=== PATIENT | male | born 1970 | race African-American/Black ===

== ENCOUNTER 2018-12-04 00:40 | Inpatient (IN) | payer OTHER ==
[~2018-12-04] VITALS: Ht 185.4 cm; Wt 136.5 kg
[2018-12-04] VITALS (19 sets, daily range): BP systolic 97–173; BP diastolic 56–108
[2018-12-04] MEDS ORDERED: morphine INJ 4 MG/ML 1 ML (VIAL/SYRINGE) ONE (01:43)
[2018-12-04] MEDS: morphine INJ 4 MG/ML 1 ML (VIAL/SYRINGE) IVP PRN ×2 (01:56→05:25)
[2018-12-04 03:53] LABS: BASOPHILS % (AUTO) 0 % (0-10); EOSINOPHILS # (AUTO) 0.1 10^3/uL (0.0-0.3); EOSINOPHILS % (AUTO) 1 % (0-10); HEMATOCRIT 50 % (40-54); HEMOGLOBIN 16.6 G/DL (13.3-17.7); LYMPHOCYTES # (AUTO) 2.3 X 10^3 (1.0-4.0); LYMPHOCYTES % (AUTO) 24 % (12-44); MEAN CORPUSCULAR HEMOGLOBIN 27 PG (25-34); MEAN CORPUSCULAR HGB CONC 33 G/DL (32-36); MEAN CORPUSCULAR VOLUME 83 FL (80-99); MONOCYTES # (AUTO) 0.9 X 10^3 (0.0-1.0); MONOCYTES % (AUTO) 10 % (0-12); NEUTROPHILS % (AUTO) 65 % (42-75); PLATELET COUNT 102 10^3/uL (130-400); RED BLOOD COUNT 6.07 10^6/uL (4.35-5.85); RED CELL DISTRIBUTION WIDTH 14.1 % (10.0-14.5); WHITE BLOOD COUNT 9.2 10^3/uL (4.3-11.0)
[2018-12-04 04:14] LABS: BUN/CREATININE RATIO 12; CALCIUM 9.1 MG/DL (8.5-10.1); CARBON DIOXIDE 22 MMOL/L (21-32); CHLORIDE 101 MMOL/L (98-107); CREATININE SERUM 0.95 MG/DL (0.60-1.30); GFR ESTIMATED > 60; GLUCOSE 264 MG/DL (70-105); MAGNESIUM 1.8 MG/DL (1.8-2.4); PHOSPHORUS 2.7 MG/DL (2.3-4.7); POTASSIUM 4.4 MMOL/L (3.6-5.0); SODIUM 136 MMOL/L (135-145)
[2018-12-04] MEDS ORDERED: KCL 20 MEQ TAB (K-DUR) PO SCH (06:00)
[2018-12-04] MEDS ORDERED: POTASSIUM CL 10MEQ/50ML IVPB 50 ML IV SCH (06:00)
[2018-12-04] MEDS ORDERED: MAGNESIUM 1 GM/100 ML IVPB 100 ML IV SCH (06:00)
[2018-12-04] MEDS: inSUlin ASPART (NovoLOG) 1 UNIT/0.01 ML (CHARGE PER UNIT) SC SCH ×4 (06:02→21:22)
--- NOTE | 2018-12-04 06:11 | Pulmonary Consultation ---
History of Present Illness History of Present Illness Date of Consultation 12/04/18 06:06 Time Seen by Provider: 06:07 Date of Admission History of Present Illness 48yo directly admitted from [facility] after dx of bilateral PEs. Pt was recently traveled to [place] via bus 2 wks ago. No hx of PE. Pt is not hypotensive. Allergies and Home Medications Allergies Coded Allergies: No Known Drug Allergies (Unverified , 12/04/18) Past Zfindwg-Qgetxe-Kxbdjm Hx Patient Social History Alcohol Use: Regular Use Alcohol Beverage of Choice: Beer Recreational Drug Use: No Smoking Status: Current Everyday Smoker Type Used: Cigarettes Recent Foreign Travel: No Contact w/Someone Who Travel: No Recent Infectious Disease Expo: No Review of Systems Time Seen by Provider: 06:32 Constitutional: Weakness, Malaise Eyes: No: Pain, Vision change, Conjunctivae inflammation, Eyelid inflammation, Other, Redness ENT: No: Ear pain, Ear discharge, Nose pain, Nose discharge, Nose congestion, Mouth pain, Mouth swelling, Throat pain, Throat swelling, Other Respiratory: Cough, Dry, Shortness of breath, SOB with excertion, Pleuritic Pain; No: Wheezing, Hemoptysis Cardiovascular: Chest Pain, Palpitations, Paroxysmal Noc. Dyspnea, Edema Gastrointestinal: No: Nausea, Vomiting, Abdominal Pain, Diarrhea, Constipation , Melena, Hematochezia, Other Genitourinary: No Dysuria, No Frequency, No Incontinence, No Hematuria, No Retention, No Other Sepsis Event Evaluation Height, Weight, BMI Height: 6'1.00" Weight: 297lbs. 6.0oz. 134.907924tb; 39.2 BMI Method: Exam Exam Vital Signs Date Time Temp Pulse Resp B/P (MAP) Pulse Ox O2 Delivery O2 Flow Rate FiO2 12/04/18 06:00 122 30 125/82 (96) 96 Nasal Cannula 2.00 12/04/18 05:00 122 26 151/94 (113) 95 Nasal Cannula 2.00 12/04/18 04:00 123 24 129/82 (98) 93 Nasal Cannula 2.00 12/04/18 04:00 Nasal Cannula 2.00 12/04/18 04:00 98.0 12/04/18 03:00 123 22 127/91 (103) 96 Nasal Cannula 2.00 12/04/18 02:00 126 12 173/95 (121) 100 Nasal Cannula 2.00 12/04/18 01:45 128 22 102/90 (94) 100 Nasal Cannula 2.00 12/04/18 01:30 129 11 129/108 (115) 100 Nasal Cannula 2.00 12/04/18 01:16 127 12/04/18 01:10 129 23 133/100 (111) 100 Nasal Cannula 2.00 12/04/18 01:05 98.5 147/106 (120) I & O 12/04/18 07:00 Intake Total 30 ml Output Total 300 ml Balance -270 ml Height & Weight Height: 6'1.00" Weight: 297lbs. 6.0oz. 134.303079pg; 39.2 BMI Method: General Appearance: Anxious, Mild Distress, Obese HEENT: PERRL/EOMI, Normal ENT Inspection, Pharynx Normal Neck: Full Range of Motion, Normal Inspection, Non Tender, Supple Respiratory: Chest Non Tender, Lungs Clear, Normal Breath Sounds, No Accessory Muscle Use, No Respiratory Distress Cardiovascular: No Edema, No Gallop, No JVD, Tachycardia Capillary Refill: Less Than 3 Seconds Gastrointestinal: normal bowel sounds, non tender, soft Extremity: Normal Capillary Refill, Normal Inspection Neurologic/Psychiatric: Alert, Oriented x3 Skin: Normal Color, Warm/Dry Lymphatic: No Adenopathy Results Lab Laboratory Tests 12/04/18 03:10 Assessment/Plan Assessment/Plan Acute provoked PE- No prior episodes of DVT/PE -CT scan was done at [facility] -Upload CT scan to our system -Continue Lovenox for now until after echo -Check echocardiogram -Check bilateral dopplers Sinus tach -IVF -monitor -check echo LLE edema pain r/o DVT -Bilateral dopplers Obesity with CASSY hx - noncompliant with CPAP therapy Tobacco use -Education GADIEL GRIJALVA DO Dec 04, 2018 06:11
[2018-12-04] MEDS ORDERED: NS IV 1000 ML 1,000 ML ONE (06:29)
[2018-12-04] MEDS ORDERED: FLU QUADRIvalent (5+ YOA) 2018-2019 (AFLURIA) 0.5 ML IM ONE ×2 (07:00→11:16)
--- NOTE | 2018-12-04 07:18 | Diagnostic Imaging Report ---
EXAM: CHEST 1 VIEW, AP/PA ONLY INDICATION: Shortness of air. ICU care management. COMPARISON: None. FINDINGS: Normal heart size and pulmonary vascularity. No dense consolidation, pleural effusion or pneumothorax. No acute osseous findings. IMPRESSION: Negative chest. Dictated by: Dictated on workstation # [id number]
[2018-12-04] MEDS: NS IV 1000 ML 1,000 ML IV SCH ×2 (07:20→15:52)
--- NOTE | 2018-12-04 09:56 | Diagnostic Imaging Report ---
EXAM: US VENOUS LOWER EXT EMMA INDICATION: Bilateral lower extremity pain. COMPARISON: None. TECHNIQUE: Duplex, zelaya-scale and color-flow imaging of the bilateral lower extremity venous system was performed FINDINGS: The bilateral superficial femoral vein, profunda femoris, and popliteal veins are normal. These vessels show normal compressibility, color flow, and doppler augmentation. There is occlusive thrombus within an enlarged left common femoral vein measuring approximately 3.4 cm in length, proximal to the great saphenous vein. The deep calf veins demonstrate no distinct intraluminal thrombus where seen. IMPRESSION: 1. Acute appearing deep venous thrombosis in the left common femoral vein. 2. No DVT in the right lower extremity. Report was called to Dr. Tian by chan at 9:55 am. Dictated by: Dictated on workstation # [id number]
--- NOTE | 2018-12-04 10:51 | NUR ---
notified physician of doppler results.
[2018-12-04] MEDS ORDERED: ENOXAPARIN 100 MG/1 ML (LOVENOX) SYR SC SCH (11:00)
--- NOTE | 2018-12-04 11:07 | NUR ---
PATIENT STATES HE IS NOT CURRENTLY TAKING ANY MEDICATIONS. HE STATES IT HAS BEEN A YEAR SINCE HE HAS TAKEN THE MEDICATIONS HE IS SUPPOSED TO BE TAKING. THIS IS DUE TO A LAPS IN INSURANCE COVERAGE. HE STATES HE STILL DOES NOT HAVE INSURANCE AND HAS NOT ESTABLISHED CARE HERE IN [place] SINCE HE HAS MOVED HERE. FOR NOW HE STATES HE WILL USE [facility] FOR ANY PRESCRIPTIONS HE NEEDS AFTER DISCHARGE.
--- NOTE | 2018-12-04 11:10 | NUR ---
Pastoral Care Visit.
--- NOTE | 2018-12-04 12:04 | History & Physical-Hospitalist ---
History of Present Illness HPI/Chief Complaint The patient is a 48-year-old black male sent to the hospitalist service from the [facility]. He lives in [place] and had come here by bus to visit his best friend who lives locally. He reports that yesterday he began to feel short of breath and that this sensation increased throughout the day he finally gave up and went to the [place] emergency room. CT angiography showed bilateral pulmonary emboli. He was transferred here. He has had lower extremity venous ultrasounds. There is a deep venous thrombosis in the left upper leg. He has not previously had a DVT. He has a history of diabetes, hypertension, and multiple sclerosis. Date Seen 12/04/18 Time Seen by a Provider: 11:59 Attending Physician Herlinda Ramirez MD PCP No,Local Physician Referring Physician Date of Admission Dec 04, 2018 at 01:00 Home Medications & Allergies Home Medications Reviewed patient Home Medication Reconciliation performed by pharmacy medication reconciliations library information technician and/or nursing. Patients Allergies have been reviewed. Allergies Allergies Coded Allergies No Known Drug Allergies (Unverified12/04/18) Past Ztrohpc-Jnkhsb-Dsthoz Hx Past Med/Social Hx: Reviewed Nursing Past Med/Soc Hx Patient Social History Alcohol Use: Regular Use Alcohol Beverage of Choice: Beer Recreational Drug Use: No Smoking Status: Current Everyday Smoker Type Used: Cigarettes Physical Abuse Screen: No Sexual Abuse: No Recent Foreign Travel: No Contact w/other who traveled: No Recent Infectious Disease Expo: No Review of Systems Constitutional: see HPI EENTM: no symptoms reported Respiratory: see HPI, dyspnea on exertion, orthopnea, short of breath Cardiovascular: no symptoms reported Gastrointestinal: no symptoms reported Genitourinary: no symptoms reported Musculoskeletal: no symptoms reported Skin: no symptoms reported Psychiatric/Neurological: No Symptoms Reported Physical Exam Physical Exam Vital Signs Vital Signs - First Documented 12/04/18 12/04/18 01:05 01:10 Temp 98.5 Pulse 129 Resp 23 B/P (MAP) 147/106 (120) Pulse Ox 100 O2 Delivery Nasal Cannula O2 Flow Rate 2.00 Capillary Refill : Less Than 3 Seconds Height, Weight, BMI Height: 6'1.00" Weight: 297lbs. 6.0oz. 134.142696px; 39.2 BMI Method: General Appearance: Mild Distress, Moderate Distress, Other (dyspnea at rest and with speaking) Eyes: Bilateral Eye Normal Inspection HEENT: Normal ENT Inspection Neck: Full Range of Motion, Normal Inspection Respiratory: Other (tachypnea) Cardiovascular: Regular Rate, Rhythm, No Edema, No Gallop, No JVD, No Murmur Gastrointestinal: Normal Bowel Sounds Extremity: Normal Capillary Refill, Normal Inspection, Normal Range of Motion, Non Tender, No Calf Tenderness, No Pedal Edema Neurologic/Psychiatric: Alert, Oriented x3, No Motor/Sensory Deficits, Normal Mood/Affect Skin: Normal Color, Warm/Dry Lymphatic: No Adenopathy Results Results/Procedures Labs Laboratory Tests 12/08/18 04:25 Patient resulted labs reviewed. Assessment/Plan Admission Diagnosis Bilateral pulmonary emboli. 2.left-sided deep venous thrombosis. 3.hypertension by history. 4.diabetes by history. 5.multiple sclerosis by history Admission Status: Inpatient Order (span 2 midnights) Reason for Inpatient Admission: Requirement for respiratory support and anticoagulation Review of the CT images sent from [place] show considerable embolus load in the large/proximal pulmonary arteries. Assessment and Plan Anticoagulation. 2.respiratory support Clinical Quality Measures DVT/VTE Risk/Contraindication: Risk Factor Score Per Nursin RFS Level Per Nursing on Admit: 4+=Very High LIZET RUST MD Dec 04, 2018 12:04
--- NOTE | 2018-12-04 14:43 | NUR ---
report called to 4th floor Cassie MARES
--- NOTE | 2018-12-04 15:40 | NUR ---
Pt. to room via wheelchair accompanied by RETIREMENT ADMINISTRATOR. Pt. currently on 3L O2. Oriented to room and call light. Bed in low, locked position.
[2018-12-04] MEDS ORDERED: CALCIUM CARBONATE 500 MG (TUMS) TAB.CHEW PO NR (17:45)
[2018-12-04] MEDS: ACETAMINOPHEN 500 MG TAB (TYLENOL) PO PRN (18:20)
--- NOTE | 2018-12-04 21:40 | NUR ---
THIS RN SPOKE WITH DR GRIJALVA REGARDING TACHYCARDIA AND SLIGHT SOA/TACHYPNEA (RR 26), NEW ORDERS FOR NS AT 125, TELEMETRY, AND CONTINUOUS PULSE OXIMETRY. PATIENT STABLE AT THIS TIME.
[2018-12-05] MEDS: ENOXAPARIN 300 MG/3 ML (LOVENOX) MULTI-DOSE VIAL SQ SCH ×2 (00:05→12:58)
[2018-12-05 00:06] VITALS: BP 124/75
[2018-12-05] MEDS: ACETAMINOPHEN 500 MG TAB (TYLENOL) PO PRN ×2 (01:32→21:18)
[2018-12-05] MEDS: NS IV 1000 ML 1,000 ML IV SCH ×3 (01:33→16:39)
[2018-12-05 04:08] VITALS: BP 127/82
[2018-12-05] MEDS: morphine INJ 4 MG/ML 1 ML (VIAL/SYRINGE) IVP PRN (05:06)
--- NOTE | 2018-12-05 05:10 | NUR ---
pt requesting something for pain, pt states that he has a headache & that his shoulder has been hurting since he fell a couple days ago. prn morphine given.
[2018-12-05 05:54] LABS: BASOPHILS % (AUTO) 0 % (0-10); EOSINOPHILS # (AUTO) 0.1 10^3/uL (0.0-0.3); EOSINOPHILS % (AUTO) 1 % (0-10); HEMATOCRIT 47 % (40-54); HEMOGLOBIN 15.5 G/DL (13.3-17.7); LYMPHOCYTES # (AUTO) 2.1 X 10^3 (1.0-4.0); LYMPHOCYTES % (AUTO) 30 % (12-44); MEAN CORPUSCULAR HEMOGLOBIN 27 PG (25-34); MEAN CORPUSCULAR HGB CONC 33 G/DL (32-36); MEAN CORPUSCULAR VOLUME 83 FL (80-99); MEAN PLATELET VOLUME 11.6 FL (7.4-10.4); MONOCYTES % (AUTO) 14 % (0-12); NEUTROPHILS # (AUTO) 3.9 X 10^3 (1.8-7.8); NEUTROPHILS % (AUTO) 55 % (42-75); PLATELET COUNT 111 10^3/uL (130-400); RED BLOOD COUNT 5.68 10^6/uL (4.35-5.85); RED CELL DISTRIBUTION WIDTH 13.9 % (10.0-14.5); WHITE BLOOD COUNT 7.2 10^3/uL (4.3-11.0)
[2018-12-05 06:14] LABS: BUN/CREATININE RATIO 12; CALCIUM 8.6 MG/DL (8.5-10.1); CARBON DIOXIDE 23 MMOL/L (21-32); CHLORIDE 105 MMOL/L (98-107); CREATININE SERUM 0.83 MG/DL (0.60-1.30); GFR ESTIMATED > 60; GLUCOSE 178 MG/DL (70-105); MAGNESIUM 1.8 MG/DL (1.8-2.4); PHOSPHORUS 2.9 MG/DL (2.3-4.7); POTASSIUM 4.2 MMOL/L (3.6-5.0); SODIUM 138 MMOL/L (135-145)
[2018-12-05] MEDS: inSUlin ASPART (NovoLOG) 1 UNIT/0.01 ML (CHARGE PER UNIT) SC SCH ×4 (06:19→22:26)
--- NOTE | 2018-12-05 07:01 | Pulmonary Progress Note ---
Subjective Time Seen by a Provider: 08:12 Subjective/Events-last exam Pt is still tachycardic. SOB is stable Sepsis Event Evaluation Height, Weight, BMI Height: 6'." Weight: 295lbs. 0.0oz. 133.624331fg; 39.2 BMI Method: Exam Exam Vital Signs Date Time Temp Pulse Resp B/P (MAP) Pulse Ox O2 Delivery O2 Flow Rate FiO2 12/05/18 04:08 97.8 115 20 127/82 (97) 96 Nasal Cannula 3.00 12/05/18 01:57 98 Nasal Cannula 2.00 12/05/18 01:00 120 12/05/18 00:06 98.4 120 20 124/75 (91) 97 Nasal Cannula 3.00 12/04/18 22:25 121 12/04/18 22:20 98 Nasal Cannula 2.00 12/04/18 20:04 115 12/04/18 20:00 Nasal Cannula 3.00 12/04/18 19:48 97.2 127 26 104/73 (83) 96 Nasal Cannula 3.00 12/04/18 16:15 96.9 123 24 132/87 (102) 96 Nasal Cannula 3.00 12/04/18 14:00 125 24 132/108 (116) 94 Nasal Cannula 2.00 12/04/18 13:23 124 12/04/18 13:00 125 22 131/90 (104) 93 Nasal Cannula 2.00 12/04/18 12:00 92 Nasal Cannula 2.00 12/04/18 12:00 123 26 137/104 (115) 96 Nasal Cannula 2.00 12/04/18 11:27 97.8 12/04/18 11:00 130 16 143/67 (92) 95 Nasal Cannula 2.00 12/04/18 10:00 121 20 97/56 (70) 96 Nasal Cannula 2.00 12/04/18 09:00 124 20 124/104 (111) 92 Nasal Cannula 2.00 12/04/18 08:00 92 Nasal Cannula 2.00 12/04/18 08:00 124 30 122/100 (107) 96 Nasal Cannula 2.00 I & O 12/05/18 07:00 Intake Total 2810 ml Output Total 1050 ml Balance 1760 ml Height & Weight Height: 6'1.00" Weight: 295lbs. 0.0oz. 133.720392qf; 39.2 BMI Method: General Appearance: Mild Distress, Other (dyspnea at rest and with speaking) HEENT: Normal ENT Inspection Neck: Full Range of Motion, Normal Inspection Respiratory: Other (tachypnea) Cardiovascular: Regular Rate, Rhythm, No Edema, No Gallop, No JVD, No Murmur Capillary Refill: Less Than 3 Seconds Gastrointestinal: normal bowel sounds, non tender, soft Extremity: Normal Capillary Refill, Normal Inspection, Normal Range of Motion, Non Tender, No Calf Tenderness, No Pedal Edema Neurologic/Psychiatric: Alert, Oriented x3, No Motor/Sensory Deficits, Normal Mood/Affect Skin: Normal Color, Warm/Dry Lymphatic: No Adenopathy Results Lab Laboratory Tests 12/04/18 03:10 12/05/18 05:10 12/05/18 05:18 Assessment/Plan Assessment/Plan Acute provoked PE- No prior episodes of DVT/PE -CT scan was done at [facility] [place] -Continue Lovenox for now until after echo -Check echocardiogram Sinus tach -IVF -monitor -check echo- pending LLE DVT Obesity with CASSY hx - noncompliant with CPAP therapy Tobacco use -Education GADIEL GRIJALVA DO Dec 05, 2018 07:01
[2018-12-05 08:00] VITALS: BP 130/90
--- NOTE | 2018-12-05 11:43 | NUR ---
PT HAD GOTTEN UP TO BR AND WHEN HE RETURNED TO HIS BED PT WAS C/O SOA -- NOTE THAT EARLIER R.T. HAD REMOVED O2 PT WAS SATING 98 ON RA -- THIS RN PUT O2 BACK ON AT 2L/NC AND PT SAING 90-93 -- AND THIS RN CALLED MIGUELINA IN R.T. AND ADVISED HER SHE VICED THAT WAS FINE
[2018-12-05 12:00] VITALS: BP 122/87
--- NOTE | 2018-12-05 13:31 | Progress Note-Hospitalist ---
Progress Note Progress Notes/Assess & Plan Date Seen 12/05/18 Time Seen by Provider: 12:50 Assessment & Plan The patient reports no chest pain. He reports he remains relatively breathlessness even in attempting to get to the bathroom from his bed. I was able to view his CT angiogram from the [facility] today. There is a considerable and central thrombus mass. Vital signs show both tachycardia with rates up to 120 and hypercapnia with rates in the 20s. Venous Dopplers yesterday showed DVT in the left common femoral vein. Physical exam: He becomes a bit breathlessness while speaking. Lungs are clear to auscultation. CV shows a tachycardia in the 100+ range. Abdomen is soft. The left lower extremity is less taut and tender than yesterday. Impression: Bilateral pulmonary emboli. 2.DVT in the left common femoral vein. 3.diabetes. 4.multiple sclerosis. Plan: Continue Lovenox. LIZET RUST MD Dec 05, 2018 13:31
[2018-12-05 16:00] VITALS: BP 127/86
[2018-12-05 20:00] VITALS: BP 134/87
[2018-12-06] VITALS: BP 128/86
[2018-12-06] MEDS: ENOXAPARIN 300 MG/3 ML (LOVENOX) MULTI-DOSE VIAL SQ SCH ×3 (00:08→22:14)
[2018-12-06] MEDS: NS IV 1000 ML 1,000 ML IV SCH ×3 (00:48→18:16)
[2018-12-06 04:02] VITALS: BP 118/81
[2018-12-06] MEDS: inSUlin ASPART (NovoLOG) 1 UNIT/0.01 ML (CHARGE PER UNIT) SC SCH ×4 (05:28→21:34)
--- NOTE | 2018-12-06 06:42 | Pulmonary Progress Note ---
Sepsis Event Evaluation Height, Weight, BMI Height: 6'1.00" Weight: 296lbs. 6.0oz. 134.750410ns; 39.2 BMI Method: Exam Exam Vital Signs Date Time Temp Pulse Resp B/P (MAP) Pulse Ox O2 Delivery O2 Flow Rate FiO2 12/06/18 06:34 96 Nasal Cannula 2.00 12/06/18 01:48 100 Nasal Cannula 2.00 12/06/18 01:00 121 12/06/18 00:00 99.5 125 20 128/86 (100) 96 Nasal Cannula 3.00 12/05/18 21:43 96 Nasal Cannula 2.00 12/05/18 20:00 100.2 125 20 134/87 (103) 97 3.00 12/05/18 19:56 Nasal Cannula 2.00 12/05/18 19:00 120 12/05/18 18:30 98 Nasal Cannula 2.00 12/05/18 16:00 99.0 120 20 127/86 (100) 99 Nasal Cannula 3.00 12/05/18 13:00 123 12/05/18 12:00 97.8 126 20 122/87 (99) 96 Nasal Cannula 3.00 12/05/18 08:00 Nasal Cannula 3.00 12/05/18 08:00 98.5 126 22 130/90 (103) 95 Nasal Cannula 3.00 12/05/18 07:07 99 Nasal Cannula 3.00 12/05/18 07:00 112 I & O 12/06/18 07:00 Intake Total 3650 ml Output Total 850 ml Balance 2800 ml Height & Weight Height: 6'1.00" Weight: 296lbs. 6.0oz. 134.918597tx; 39.2 BMI Method: General Appearance: Mild Distress, Other (dyspnea at rest and with speaking) HEENT: Normal ENT Inspection Neck: Full Range of Motion, Normal Inspection Respiratory: Other (tachypnea) Cardiovascular: Regular Rate, Rhythm, No Edema, No Gallop, No JVD, No Murmur Capillary Refill: Less Than 3 Seconds Gastrointestinal: normal bowel sounds, non tender, soft Extremity: Normal Capillary Refill, Normal Inspection, Normal Range of Motion, Non Tender, No Calf Tenderness, No Pedal Edema Neurologic/Psychiatric: Alert, Oriented x3, No Motor/Sensory Deficits, Normal Mood/Affect Skin: Normal Color, Warm/Dry Lymphatic: No Adenopathy Results Lab Laboratory Tests 12/05/18 05:10 12/05/18 05:18 Assessment/Plan Assessment/Plan Acute provoked PE- No prior episodes of DVT/PE -[place] [facility]Continue Lovenox for now until after echo -echocardiogram - still pending -Consult Dr. Wright for possible intervention Persistent Sinus tach -Repeat EKG -IVF -monitor -check echo- pending LLE DVT Obesity with CASSY hx - noncompliant with CPAP therapy Tobacco use -Education GADIEL GRIJALVA DO Dec 06, 2018 06:42
[2018-12-06 06:50] LABS: BASOPHILS % (AUTO) 0 % (0-10); EOSINOPHILS # (AUTO) 0.1 10^3/uL (0.0-0.3); EOSINOPHILS % (AUTO) 1 % (0-10); HEMATOCRIT 46 % (40-54); HEMOGLOBIN 15.3 G/DL (13.3-17.7); LYMPHOCYTES # (AUTO) 1.6 X 10^3 (1.0-4.0); LYMPHOCYTES % (AUTO) 21 % (12-44); MEAN CORPUSCULAR HEMOGLOBIN 27 PG (25-34); MEAN CORPUSCULAR HGB CONC 33 G/DL (32-36); MEAN CORPUSCULAR VOLUME 83 FL (80-99); MEAN PLATELET VOLUME 11.4 FL (7.4-10.4); MONOCYTES # (AUTO) 0.8 X 10^3 (0.0-1.0); MONOCYTES % (AUTO) 11 % (0-12); NEUTROPHILS # (AUTO) 5.1 X 10^3 (1.8-7.8); NEUTROPHILS % (AUTO) 67 % (42-75); PLATELET COUNT 123 10^3/uL (130-400); RED BLOOD COUNT 5.58 10^6/uL (4.35-5.85); RED CELL DISTRIBUTION WIDTH 13.6 % (10.0-14.5); WHITE BLOOD COUNT 7.7 10^3/uL (4.3-11.0)
[2018-12-06 07:19] LABS: ALANINE AMINOTRANSFERASE 30 U/L (0-55); ALBUMIN 3.3 GM/DL (3.2-4.5); ALKALINE PHOSPHATASE 72 U/L (40-136); BILIRUBIN,TOTAL 0.5 MG/DL (0.1-1.0); BUN/CREATININE RATIO 12; CALCIUM 8.8 MG/DL (8.5-10.1); CARBON DIOXIDE 22 MMOL/L (21-32); CHLORIDE 104 MMOL/L (98-107); CREATININE SERUM 0.84 MG/DL (0.60-1.30); GFR ESTIMATED > 60; GLUCOSE 171 MG/DL (70-105); MAGNESIUM 1.8 MG/DL (1.8-2.4); PHOSPHORUS 3.4 MG/DL (2.3-4.7); POTASSIUM 3.9 MMOL/L (3.6-5.0); SODIUM 136 MMOL/L (135-145); TOTAL PROTEIN 6.6 GM/DL (6.4-8.2)
[2018-12-06 08:00] VITALS: BP 140/86
--- NOTE | 2018-12-06 09:00 | Consultation-Cardiology ---
HPI-Cardiology Cardiology Consultation: Date of Consultation 12/06/18 Date of Admission Attending Physician Herlinda Ramirez MD Admitting Physician No,Local Physician Consulting Physician Nick WRIGHT MD HPI: Time Seen by a Provider: 08:50 Chief Complaint: Sinus tachycardia. This is a 48-year-old gentleman who was recently directly admitted from [facility] with a diagnosis of bilateral pulmonary embolism. He was also diagnosed with left lower extremity DVT. He has been on Lovenox. He recently traveled from [place] on bus. He has history of diabetes and active smoking. No previous history of pulmonary embolism or DVT. Patient continued to have shortness of breath with sinus tachycardia. When I saw the patient he is short of breath and sitting upright. Lower extremity swelling. Patient denies any chest pain. No syncope or near syncope. Review of Systems-Cardiology Review of Systems Constitutional: As described under HPI; No As described under HPI, No no symptoms reported, No chills, No fever, No lightheadedness Eyes: No As described under HPI, No no symptoms reported, No blindness, No blurred vision, No contact lenses, No drainage, No decreased acuity, No foreign body sensation, No pain, No vision change Ears/Nose/Throat: No As described under HPI, No no symptoms reported, No chronic hearing loss, No ear discharge, No ear pain, No nasal drainage, No ulcerations Respiratory: No no symptoms reported; As described under HPI; No As described under HPI, No cough; orthopnea, shortness of breath; No SOB with excertion Cardiovascular: No no symptoms reported; As described under HPI; No As described under HPI, No chest pain, No edema, No irregular heart rate, No lightheadedness, No palpitations Gastrointestinal: No no symptoms reported, No As described under HPI, No abdomen distended, No abdominal pain, No blood streaked bowels, No constipation , No diarrhea, No nausea, No vomiting, No stool coloration changes Genitourinary: No As described under HPI, No burning, No dysuria, No discharge , No frequency, No flank pain, No hematuria, No urgency Musculoskeletal: No no symptoms reported, No As describe under HPI, No back pain, No gout, No joint pain, No joint swelling, No muscle pain, No muscle stiffness, No neck pain, No other Skin: No rash, No skin related problems, No ulcerations Psychiatric/Neurological: No anxiety, No depression, No seizure, No focal weakness, No syncope Hematologic: As described under HPI; No bleeding abnormalities CVJ-Haemol-Skcrbz Hx Patient Social History Alcohol Use: Regular Use Recreational Drug Use: No Smoking Status: Current Everyday Smoker Type Used: Cigarettes Recent Foreign Travel: No Recent Infectious Disease Expo: No Physical Abuse Screen: No Sexual Abuse: No Past Medical History PMH As described under Assessment. Allergies and Home Medications Allergies Coded Allergies: No Known Drug Allergies (Unverified , 12/04/18) Home Medications No Active Prescriptions or Reported Meds Patient Home Medication List Home Medication List Reviewed: Yes Physical Exam-Cardiology Physical Exam Vital Signs/I&O 12/06/18 12/06/18 12/06/18 12/06/18 00:00 01:00 01:48 04:02 Temp 99.5 98.3 Pulse 125 121 110 Resp 20 18 B/P (MAP) 128/86 (100) 118/81 (93) Pulse Ox 96 100 95 O2 Delivery Nasal Cannula Nasal Cannula Nasal Cannula O2 Flow Rate 3.00 2.00 3.00 12/06/18 12/06/18 12/06/18 06:34 07:00 08:00 Temp 98.9 Pulse 114 60 Resp 20 B/P (MAP) 140/86 (104) Pulse Ox 96 95 O2 Delivery Nasal Cannula Nasal Cannula O2 Flow Rate 2.00 3.00 12/06/18 00:00 Intake Total 2150 ml Output Total 450 ml Balance 1700 ml Capillary Refill : Less Than 3 Seconds Constitutional: appears stated age, AAO x 3, apparent distress, well-developed , well-nourished HEENT: PERRL; No discharge; hearing is well preserved, oral hygience is good; No ulceration, No xanthelasmas are seen Neck: No carotid bruit; carotid pulses are 2 + bilaterally Respiratory: accessory muscle use, respiratory distress; No chest tender, No chest expansion is symmetric; chest is bilaterally symmetric; No lungs clear to percussion, No lungs clear to auscultation; crackles; No rhonchi, No rales, No stridor, No wheezing, No pleural rub, No other Cardiovascular: regular rate-rhythm; No irregularly irregular, No extra beats, No parasternal heave is noted, No JVD, No edema, No bradycardia; tachycardia; No point of maximal impulse, No cardiac thrills are palpable; S1 and S2; No gallop/S3, No gallop/S4, No diastolic murmur, No systolic murmur, No friction rub, No click, No other Gastrointestinal: No tender, No soft, No round, No distended, No pulsatile mass , No organomegaly, No guarding, No rebound, No tenderness, No hernia, No mass, No audible bowel sounds, No abnormal bowel sounds, No abdominal bruits, No spleenomegaly, No other Rectal: deferred Extremities: No normal range of motion, No non-tender, No normal inspection, No pedal edema, No calf tenderness, No normal capillary refill, No pelvis stable , No calf tenderness, No inflammation, No pedal edema, No slow capillary refill ; swelling; No other, No abrasion, No clubbing, No cyanosis, No ecchymosis, No laceration, No no lower extremity edema bilateral, No significant edema, No tenderness, No wound Neurologic/Psychiatric: no motor/sensory deficits, alert, normal mood/affect, oriented x 3, power is 5/5 both on sides Skin: No normal color, No warm/dry, No cyanosis, No cool, No diaphoresis, No damp, No ecchymosis, No jaundice, No mottled, No pallor, No rash, No tattoos/ piercings, No ulcerations, No rash on exposed areas, No ulcerations on exposed areas, No other Data Review Labs Laboratory Tests 12/05/18 11:40: Glucometer 275H 12/05/18 16:05: Glucometer 210H 12/05/18 21:50: Glucometer 224H 12/06/18 05:27: Glucometer 162H 12/06/18 06:34: White Blood Count 7.7, Red Blood Count 5.58, Hemoglobin 15.3, Hematocrit 46, Mean Corpuscular Volume 83, Mean Corpuscular Hemoglobin 27, Mean Corpuscular Hemoglobin Concent 33, Red Cell Distribution Width 13.6, Platelet Count 123L, Mean Platelet Volume 11.4H, Neutrophils (%) (Auto) 67, Lymphocytes (%) (Auto) 21 , Monocytes (%) (Auto) 11, Eosinophils (%) (Auto) 1, Basophils (%) (Auto) 0, Neutrophils # (Auto) 5.1, Lymphocytes # (Auto) 1.6, Monocytes # (Auto) 0.8, Eosinophils # (Auto) 0.1, Basophils # (Auto) 0.0, Sodium Level 136, Potassium Level 3.9, Chloride Level 104, Carbon Dioxide Level 22, Anion Gap 10, Blood Urea Nitrogen 10, Creatinine 0.84, Estimat Glomerular Filtration Rate > 60, BUN/ Creatinine Ratio 12, Glucose Level 171H, Calcium Level 8.8, Corrected Calcium 9.4, Phosphorus Level 3.4, Magnesium Level 1.8, Total Bilirubin 0.5, Aspartate Amino Transf (AST/SGOT) 23, Alanine Aminotransferase (ALT/SGPT) 30, Alkaline Phosphatase 72, B-Type Natriuretic Peptide 294.1H, Total Protein 6.6, Albumin 3.3 12/06/18 07:15: Lactic Acid Level 1.10 12/06/18 09:40: Urine Color AMBERH, Urine Clarity CLEAR, Urine pH 5, Urine Specific [place] 1.025H, Urine Protein 3+H, Urine Glucose (UA) 3+H, Urine Ketones NEGATIVE, Urine Nitrite NEGATIVE, Urine Bilirubin NEGATIVE, Urine Urobilinogen NORMAL, Urine Leukocyte Esterase NEGATIVE, Urine RBC (Auto) 1+H, Urine RBC NONE, Urine WBC 0-2, Urine Squamous Epithelial Cells 0-2, Urine Crystals NONE, Urine Bacteria TRACE, Urine Casts NONE, Urine Mucus MODERATEH, Urine Culture Indicated NO 12/06/18 10:50: Blood Gas Puncture Site LT RAD, Blood Gas Patient Temperature 99.4, Arterial Blood pH 7.46H, Arterial Blood Partial Pressure CO2 34L, Arterial Blood Partial Pressure O2 174H, Arterial Blood HCO3 24, Arterial Blood Total CO2 25.2, Arterial Blood Oxygen Saturation 99, Arterial Blood Base Excess 0.8, Cole Test YES-POS, Blood Gas Ventilator Setting NO, Blood Gas Inspired Oxygen 2L Microbiology 12/04/18 MRSA Screen - Final, Complete MRSA not isolated ECG Impression ECG Initial ECG Rhythm: S.Tach A/P-Cardiology Assessment/Admission Diagnosis Bilateral pulmonary embolism, New diagnosis of cardiomyopathy, Acute systolic congestive heart failure, Diabetes, Active smoking. Plan Bilateral pulmonary embolism, stable hemodynamically. Still requiring 2 L of oxygen to keep oxygen saturation over 90 percent. On my examination oxygen saturation was 93 percent. Mild RV dysfunction with normal PA pressure. Oral anticoagulation therapy for 6 months. Left lower extremity DVT. Sinus tachycardia: Likely due to pulmonary embolism and severe cardiomyopathy. No beta blockers for now. New diagnosis of cardiomyopathy, echocardiogram shows EF of 20-25 percent. Global hypokinesis. Will require coronary evaluation when more stable. Start low-dose lisinopril. No beta blockers for now. Will likely require LifeVest before discharge. Acute systolic congestive heart failure, IV Lasix. Strict input and output record. Salt and fluid restriction. [id number] aortic stenosis: Continue to follow clinically. Diabetes, Active smoking. Strongly recommended to quit. Suspicious pneumonia with fever. Defer to Dr. Tian. Thank you for your consultation. Please call me if you have any questions. Merline Wright MD, FACP, FACC, FSCAI, FHRS, CCDS Interventional Cardiology Cardiac Electrophysiology Vascular Medicine and Endovascular Interventions Clinical Quality Measures DVT/VTE Risk/Contraindication: Risk Factor Score Per Nursin RFS Level Per Nursing on Admit: 4+=Very High Nick WRIGHT MD Dec 06, 2018 9:00 am
--- NOTE | 2018-12-06 09:03 | Diagnostic Imaging Report ---
INDICATION: Fever. PA and lateral chest. FINDINGS: There is an infiltrate present at the right medial lung base that has increased from 12/04/2018. There is no effusion. Left lung is clear. IMPRESSION: Developing right basilar infiltrate consistent with pneumonia. Dictated by: Dictated on workstation # [id number]
[2018-12-06 09:50] LABS: BILIRUBIN,URINE NEGATIVE (NEGATIVE); CLARITY,URINE CLEAR; COLOR,URINE AMBER; GLUCOSE, URINE (UA) 3+ (NEGATIVE); KETONES,URINE NEGATIVE (NEGATIVE); LEUKOCYTE ESTERASE ,URINE NEGATIVE (NEGATIVE); NITRITE,URINE NEGATIVE (NEGATIVE); PH,URINE 5 (5-9); PROTEIN,URINE 3+ (NEGATIVE); UROBILINOGEN,URINE NORMAL (NORMAL)
[2018-12-06] MEDS ORDERED: FUROSEMIDE 40 MG/4 ML INJ (LASIX) IVP NR (09:58)
[2018-12-06 10:01] LABS: BACTERIA,URINE TRACE /HPF; SQUAMOUS EPITHELIAL CELL,UR 0-2 /HPF; WBC,URINE 0-2 /HPF
[2018-12-06] MEDS: lisINopril 5 MG (PRINIVIL) TABLET PO SCH (10:06)
[2018-12-06] MEDS: morphine INJ 4 MG/ML 1 ML (VIAL/SYRINGE) IVP PRN (10:11)
--- NOTE | 2018-12-06 10:33 | Progress Note-Hospitalist ---
CHET ACEVEDO 12/06/18 1033: Subjective HPI/CC On Admission Date Seen by Provider: Dec 06, 2018 Time Seen by Provider: 09:15 The patient is a 48-year-old black male sent to the hospitalist service from the [facility]. He lives in [place] and had come here by bus to visit his best friend who lives locally. He reports that yesterday he began to feel short of breath and that this sensation increased throughout the day he finally gave up and went to the [place] emergency room. CT angiography showed bilateral pulmonary emboli. He was transferred here. He has had lower extremity venous ultrasounds. There is a deep venous embolus in the left upper leg. He has not previously had a DVT. He has a history of diabetes, hypertension, and multiple sclerosis. Subjective/Events-last exam Patient still having shortness of breath especially when he is up walking around Maintained on oxygen Appreciate cardiology and pulmonology evaluation Chest x-ray revealed infiltrate start Zosyn empirically since blood cultures are completed Will slow down IV fluids Patient doesn't have any home meds to reconcile and restart but he says he does so unsure about that Echocardiogram shows ejection fraction of 2025 percent so will need evaluation and LifeVest at discharge Review of Systems Pulmonary: Dyspnea Focused Exam Lactate Level 12/06/18 07:15: Lactic Acid Level 1.10 Lactic Acid Level Objective Exam Vital Signs Vital Signs Date Time Temp Pulse Resp B/P (MAP) Pulse Ox O2 Delivery O2 Flow Rate FiO2 12/06/18 10:55 97 Nasal Cannula 2.00 12/06/18 08:00 98.9 60 20 140/86 (104) Capillary Refill : Less Than 3 Seconds General Appearance: WD/WN, Chronically ill, Mild Distress Neck: Full Range of Motion, Normal Inspection, Non Tender, Supple, Carotid Bruit Respiratory: Chest Non Tender, Accessory Muscle Use, Decreased Breath Sounds, Respiratory Distress (mild) Cardiovascular: Regular Rate, Rhythm, No Edema, No Gallop, No JVD, No Murmur, Normal Peripheral Pulses Neurologic/Psychiatric: Alert, Oriented x3, No Motor/Sensory Deficits, Normal Mood/Affect Results/Procedures Lab Laboratory Tests 12/06/18 06:34 Patient resulted labs reviewed. Assessment/Plan Assessment and Plan Assess & Plan/Chief Complaint Assessment: Bilateral PE maintain on Lovenox and oxygen Left lower extremity DVT History of multiple sclerosis Diabetes mellitus Smoker Cardiomyopathy ejection fraction 20 percent on echocardiogram will need cardiac evaluation along with LifeVest before discharge Pneumonia infiltrate on chest x-ray Plan: Slowed on IV fluids Oxygen Nebulas treatments Monitor blood sugar Add Zosyn for infiltrate Diagnosis/Problems Diagnosis/Problems (1) Bilateral pulmonary embolism Status: Acute (2) DVT (deep venous thrombosis) Status: Acute Qualifiers: DVT location: lower extremity Affected thrombotic vein of extremity: unspecified vein of extremity Laterality: left (3) Cardiomyopathy Status: Acute Qualifiers: Cardiomyopathy type: unspecified Qualified Codes: I42.9 - Cardiomyopathy, unspecified (4) Diabetes mellitus Status: Chronic Qualifiers: Diabetes mellitus type: type 2 Diabetes mellitus prison insulin use: without prison use Diabetes mellitus complication status: with unspecified complications Qualified Codes: E11.8 - Type 2 diabetes mellitus with unspecified complications (5) Multiple sclerosis Status: Chronic Clinical Quality Measures DVT/VTE Risk/Contraindication: Risk Factor Score Per Nursin RFS Level Per Nursing on Admit: 4+=Very High PAOLA LOVE [employer] STUDENT 12/06/18 1107: Subjective Subjective/Events-last exam PT states he is still having dyspnea WILSON when he walks to the bath room and states that it takes him ~20 min to catch his breath Objective Exam General Appearance: Mild Distress HEENT: PERRL/EOMI Neck: Full Range of Motion, Supple Respiratory: Decreased Breath Sounds, Respiratory Distress (mild) Cardiovascular: Regular Rate, Rhythm Assessment/Plan Assessment and Plan Assess & Plan/Chief Complaint Assessment: Bilateral PE Left proximal DVT History of MS History of DM Tobacco abuse Plan: Continue pt on Lovenox Echo Continue O2 support smoking cessation CHET ACEVEDO DO Dec 06, 2018 10:33 PAOLA [employer] ST[employer]ENT Dec 06, 2018 11:07
[2018-12-06 10:58] LABS: ABG BASE EXCESS 0.8 MMOL/L (-2.5-2.5); ABG OXYGEN SATURATION 99 % (94-100); ABG PCO2 34 MMHG (35-45); ABG PH 7.46 (7.37-7.43); ABG PO2 174 MMHG (79-93); ABG TCO2 25.2 MMOL/L (21.0-31.0)
[2018-12-06 10:59] LABS: ALLENS TEST YES-POS; INSPIRED O2 2L; PATIENT TEMP 99.4; VENTILATOR NO
[2018-12-06 12:00] VITALS: BP 119/78
[2018-12-06] MEDS ORDERED: PIPERACILLIN/TAZO 4.5 GM/NS 100 ML IV NR ×2 (13:00)
[2018-12-06] MEDS: RT-ALBUTEROL SULF 2.5 MG/3 ML PRE-MIX VIAL INH SCH ×3 (13:57→22:11)
[2018-12-06 16:00] VITALS: BP 128/92
[2018-12-06] MEDS: PIPERACILLIN SODIUM/TAZOBACTAM 4.5 GM in NS (IVPB) 100 ML IV SCH (18:16)
[2018-12-06 20:00] VITALS: BP 107/73
[2018-12-06] MEDS: ACETAMINOPHEN 500 MG TAB (TYLENOL) PO PRN (20:14)
[2018-12-07 00:20] VITALS: BP 121/84
[2018-12-07] MEDS: RT-ALBUTEROL SULF 2.5 MG/3 ML PRE-MIX VIAL INH SCH ×6 (02:18→22:40)
[2018-12-07] MEDS: PIPERACILLIN SODIUM/TAZOBACTAM 4.5 GM in NS (IVPB) 100 ML IV SCH ×3 (02:23→18:54)
[2018-12-07 03:50] VITALS: BP 132/92
[2018-12-07 05:41] LABS: BASOPHILS % (AUTO) 0 % (0-10); EOSINOPHILS # (AUTO) 0.1 10^3/uL (0.0-0.3); EOSINOPHILS % (AUTO) 1 % (0-10); HEMATOCRIT 44 % (40-54); HEMOGLOBIN 14.7 G/DL (13.3-17.7); LYMPHOCYTES # (AUTO) 1.4 X 10^3 (1.0-4.0); LYMPHOCYTES % (AUTO) 21 % (12-44); MEAN CORPUSCULAR HEMOGLOBIN 28 PG (25-34); MEAN CORPUSCULAR HGB CONC 33 G/DL (32-36); MEAN CORPUSCULAR VOLUME 83 FL (80-99); MEAN PLATELET VOLUME 11.3 FL (7.4-10.4); MONOCYTES # (AUTO) 0.9 X 10^3 (0.0-1.0); MONOCYTES % (AUTO) 13 % (0-12); NEUTROPHILS # (AUTO) 4.4 X 10^3 (1.8-7.8); NEUTROPHILS % (AUTO) 65 % (42-75); PLATELET COUNT 130 10^3/uL (130-400); RED BLOOD COUNT 5.33 10^6/uL (4.35-5.85); RED CELL DISTRIBUTION WIDTH 13.7 % (10.0-14.5); WHITE BLOOD COUNT 6.8 10^3/uL (4.3-11.0)
[2018-12-07 06:00] LABS: BUN/CREATININE RATIO 13; CALCIUM 8.9 MG/DL (8.5-10.1); CARBON DIOXIDE 25 MMOL/L (21-32); CHLORIDE 103 MMOL/L (98-107); CREATININE SERUM 0.91 MG/DL (0.60-1.30); GFR ESTIMATED > 60; GLUCOSE 233 MG/DL (70-105); PHOSPHORUS 4.5 MG/DL (2.3-4.7); POTASSIUM 3.7 MMOL/L (3.6-5.0); SODIUM 139 MMOL/L (135-145)
[2018-12-07] MEDS: inSUlin ASPART (NovoLOG) 1 UNIT/0.01 ML (CHARGE PER UNIT) SC SCH ×4 (06:16→21:52)
--- NOTE | 2018-12-07 06:44 | Pulmonary Progress Note ---
Subjective Time Seen by a Provider: 06:48 Sepsis Event Evaluation Height, Weight, BMI Height: 6'.00" Weight: 296lbs. 6.0oz. [id number]; 39.2 BMI Method: Focused Exam Lactate Level 12/06/18 07:15: Lactic Acid Level 1.10 Exam Exam Vital Signs Date Time Temp Pulse Resp B/P (MAP) Pulse Ox O2 Delivery O2 Flow Rate FiO2 12/07/18 06:31 95 Nasal Cannula 2.00 12/07/18 03:50 99.1 111 22 132/92 (105) 95 Nasal Cannula 2.00 12/07/18 02:18 96 Nasal Cannula 2.00 12/07/18 01:00 109 12/07/18 00:20 99.2 112 22 121/84 (96) 96 Nasal Cannula 2.00 12/06/18 22:11 95 Nasal Cannula 2.00 12/06/18 20:00 Nasal Cannula 2.00 12/06/18 20:00 99.0 125 20 107/73 (84) 99 Nasal Cannula 2.00 12/06/18 19:01 94 Nasal Cannula 2.00 12/06/18 19:00 120 12/06/18 16:00 97.5 119 18 128/92 (104) 100 Nasal Cannula 2.00 12/06/18 13:58 100 Nasal Cannula 2.00 12/06/18 13:00 127 12/06/18 12:00 98.1 113 20 119/78 (92) 96 Nasal Cannula 2.00 12/06/18 10:55 97 Nasal Cannula 2.00 12/06/18 08:00 98.9 60 20 140/86 (104) 95 Nasal Cannula 2.00 12/06/18 08:00 Nasal Cannula 2.00 12/06/18 07:00 114 I & O 12/07/18 07:00 Intake Total 4745 ml Output Total 3730 ml Balance 1015 ml Height & Weight Height: 6'1.00" Weight: 296lbs. 6.0oz. 134.730209fs; 39.2 BMI Method: General Appearance: WD/WN, Chronically ill, Mild Distress HEENT: PERRL/EOMI Neck: Full Range of Motion, Normal Inspection, Non Tender, Supple, Carotid Bruit Respiratory: Chest Non Tender, Accessory Muscle Use, Decreased Breath Sounds, Respiratory Distress (mild) Cardiovascular: Regular Rate, Rhythm, No Edema, No Gallop, No JVD, No Murmur, Normal Peripheral Pulses Capillary Refill: Less Than 3 Seconds Gastrointestinal: normal bowel sounds, non tender, soft Extremity: Normal Capillary Refill, Normal Inspection, Normal Range of Motion, Non Tender, No Calf Tenderness, No Pedal Edema Neurologic/Psychiatric: Alert, Oriented x3, No Motor/Sensory Deficits, Normal Mood/Affect Skin: Normal Color, Warm/Dry Lymphatic: No Adenopathy Results Lab Laboratory Tests 12/06/18 06:34 12/07/18 05:15 Assessment/Plan Assessment/Plan Acute provoked PE- No prior episodes of DVT/PE -Change Lovenox to Xarelto 15mg BID x 21 days then 20mg daily -echocardiogram - still pending Severe cardiomyopathy with EF of 20% -Needs life vest and cardiac cath prior to discharge per cardiology. Persistent Sinus tach -Repeat EKG -IVF -monitor -check echo- pending LLE DVT Obesity with CASSY hx - noncompliant with CPAP therapy Tobacco use -Education GADIEL GRIJALVA DO Dec 07, 2018 06:44
[2018-12-07 08:00] VITALS: BP 128/91
[2018-12-07] MEDS: NS IV 1000 ML 1,000 ML IV SCH (08:53)
[2018-12-07] MEDS: lisINopril 5 MG (PRINIVIL) TABLET PO SCH (08:54)
[2018-12-07] MEDS: RIVAROXABAN 15 MG TABLET (XARELTO) PO SCH ×2 (08:55→18:22)
--- NOTE | 2018-12-07 10:02 | Progress Note-Hospitalist ---
CHET ACEVEDO 12/07/18 1002: Subjective HPI/CC On Admission Date Seen by Provider: Dec 07, 2018 Time Seen by Provider: 09:00 The patient is a 48-year-old black male sent to the hospitalist service from the [facility]. He lives in [place] and had come here by bus to visit his best friend who lives locally. He reports that yesterday he began to feel short of breath and that this sensation increased throughout the day he finally gave up and went to the [place] emergency room. CT angiography showed bilateral pulmonary emboli. He was transferred here. He has had lower extremity venous ultrasounds. There is a deep venous embolus in the left upper leg. He has not previously had a DVT. He has a history of diabetes, hypertension, and multiple sclerosis. Subjective/Events-last exam Patient reports he is breathing about the same Fabricio, ago when there he sleeping in bed I have ordered physical therapy patient will therapy to get out of bed and active Maintained on antibiotics for pneumonia Anticoagulation can be given and a coupon Awaiting cardiology recommendations due to the ejection fraction of 20 percent Review of Systems Pulmonary: Dyspnea Focused Exam Lactate Level 12/06/18 07:15: Lactic Acid Level 1.10 Objective Exam Vital Signs Vital Signs Date Time Temp Pulse Resp B/P (MAP) Pulse Ox O2 Delivery O2 Flow Rate FiO2 12/07/18 11:30 95 Nasal Cannula 2.00 12/07/18 08:00 97.5 110 20 128/91 (103) Capillary Refill : Less Than 3 Seconds General Appearance: No Apparent Distress, WD/WN, Chronically ill, Obese Respiratory: Chest Non Tender, Lungs Clear, No Accessory Muscle Use, No Respiratory Distress, Decreased Breath Sounds, Respiratory Distress (mild) Cardiovascular: Regular Rate, Rhythm, No Edema, No Gallop, No JVD, No Murmur, Normal Peripheral Pulses Neurologic/Psychiatric: Alert, Oriented x3, No Motor/Sensory Deficits, Normal Mood/Affect Results/Procedures Lab Laboratory Tests 12/07/18 05:15 Patient resulted labs reviewed. Assessment/Plan Assessment and Plan Assess & Plan/Chief Complaint Assessment: Bilateral PE maintain on Lovenox and oxygen Left lower extremity DVT History of multiple sclerosis Diabetes mellitus Smoker Cardiomyopathy ejection fraction 20 percent on echocardiogram will need cardiac evaluation along with LifeVest before discharge Pneumonia infiltrate on chest x-ray Plan: Slowed on IV fluids Oxygen Nebulas treatments Monitor blood sugar Add Zosyn for infiltrate Assessment: Bilateral pulmonary emboli with DVT Infiltrate on chest x-ray consistent with pneumonia Cardiomyopathy ejection fraction 20 percent needs LifeVest and cardiac workup History of MS no meds for the past one year but willing to start treatment at any time especially now Plan: Await cardiology Mika PT and OT to get out of bed Maintain oxygen Will need LifeVest and home O2 Awaiting cardiac evaluation Diagnosis/Problems Diagnosis/Problems (1) Bilateral pulmonary embolism Status: Acute (2) DVT (deep venous thrombosis) Status: Acute Qualifiers: DVT location: lower extremity Affected thrombotic vein of extremity: unspecified vein of extremity Laterality: left (3) Cardiomyopathy Status: Acute Qualifiers: Cardiomyopathy type: unspecified Qualified Codes: I42.9 - Cardiomyopathy, unspecified (4) Diabetes mellitus Status: Chronic Qualifiers: Diabetes mellitus type: type 2 Diabetes mellitus mcfp insulin use: without mcfp use Diabetes mellitus complication status: with unspecified complications Qualified Codes: E11.8 - Type 2 diabetes mellitus with unspecified complications (5) Multiple sclerosis Status: Chronic (6) Pneumonia Status: Acute Qualifiers: Pneumonia type: due to unspecified organism Laterality: unspecified laterality Lung location: unspecified part of lung Qualified Codes: J18.9 - Pneumonia, unspecified organism Clinical Quality Measures DVT/VTE Risk/Contraindication: Risk Factor Score Per Nursin RFS Level Per Nursing on Admit: 4+=Very High PAOLA [employer] STUDENT 12/07/18 1111: Objective Exam General Appearance: Mild Distress Neck: Full Range of Motion Respiratory: Decreased Breath Sounds, Respiratory Distress (mild) Cardiovascular: Regular Rate, Rhythm, Tachycardia Assessment/Plan Assessment and Plan Assess & Plan/Chief Complaint Assessment: Bilateral PE maintain on Lovenox and oxygen Left lower extremity DVT PNA - pulmonary infiltrates on CXR History of multiple sclerosis Diabetes mellitus Smoker Pneumonia infiltrate on chest x-ray Plan: Continue on Lovonox for bilateral PE and DVT Continue on Zosyn for PNA continue on IV fluids Oxygen Nebulizer treatments Monitor blood sugar PT consult CHET ACEVEDO DO Dec 07, 2018 10:02 PA[employer]A [employer]ENT Dec 07, 2018 11:11
[2018-12-07 12:00] VITALS: BP 132/91
--- NOTE | 2018-12-07 14:03 | Physical Therapy Evaluation ---
PT Evaluation-General Medical Diagnosis Admission Date Dec 04, 2018 at 01:00 Medical Diagnosis: bilateral PE Onset Date: Dec 04, 2018 Therapy Diagnosis Therapy Diagnosis: debility Height/Weight Height (Feet): 6 Height (Inches): 1.00 Weight (Pounds): 299 Weight (Ounces): 9.0 Precautions Precautions/Isolations: Standard Precautions Referral Physician: Lencho Reason for Referral: Evaluation/Treatment Medical History Pertinent Medical History: DM, HTN, Smoking Additional Medical History MS Current History admit [place] [facility] [place] to bilateral PE and left LE DVT Reviewed History: Yes Social History Home: Apartment Current Living Status: Alone Prior/Core FIM Prior Level of Function Therapy Code Descriptions/Definitions Functional [place] Measure: 0=Not Assessed/NA 4=Minimal Assistance 1=Total Assistance 5=Supervision or Setup 2=Maximal Assistance 6=Modified [place] 3=Moderate Assistance 7=Complete [place] Therapy Quality Codes: 6 Independent with activity with or without an assistive device 5 Patient requires set up or clean up by helper. Patient completes activity by themselves 4 Supervision or touching assist (CGA). [place] provide cues , steadying assist 3 The helper provides less than half the effort to complete the activity 2 The helper provides more than half the effort to complete the activity 1 Dependent. The helper does all the effort to complete an activity 7 Patient refused to complete or attempt activity 9 The patient did not perform the activity before the current illness or injury 88 Not attempted due to Medical conditions or safety concerns Functional Abilities and Goals: Independent: Patient completed the activities by him/herself, with or without an assistive device, with no assistance from a helper. Needed Some Help: Patient needed partial assistance from another person to complete activities. Dependent: A helper completed the activities for the patient. Unknown: Not Applicable: Bed Mobility: 7 Transfers (B,C,W/C) (FIM): 7 Gait: 7 Stairs: 7 Indoor Mobility (Ambulation): Independent Stairs: Independent Prior Devices Use: None PT Evaluation-Current Subjective Patient agrees to PT. He appears very anxious. Pain Numeric Pain Scale: 5-Moderate Pain Location: Right Location Body Site: Shoulder Pain Description: Acute Objective Patient Orientation: Normal For Age Problem Solving: Fair Attachments: Oxygen, IV ROM/Strength ROM Lower Extremities bilateral LE WFL Strength Lower Extremities 4/5 grossly bilaterally Integumentary/Posture Integumentary refer to nursing notes Bowel Incontinence: No Bladder Incontinence: No Posture WFL Neuromuscular (Tone, Coordination, Reflexes) grossly intact Sensory Vision: Functional Hearing: Functional Sensation Right Lower Extremit: Impaired Sensation Left Lower Extremity: Impaired Transfers Therapy Code Descriptions/Definitions Functional [place] Measure: 0=Not Assessed/NA 4=Minimal Assistance 1=Total Assistance 5=Supervision or Setup 2=Maximal Assistance 6=Modified [place] 3=Moderate Assistance 7=Complete [place] Transfers (B, C, W/C) (FIM): 6 Scootin Rollin Supine to/from Sit: 6 Sit to/from Stand: 6 Gait Mode of Locomotion: Walk Anticipated Mode of Locomotion: Walk Gait (FIM): 6 Distance (FIM): 3=150 ft Distance: >300' Gait Level of Assist: 6 Gait Assistive Device: FWW Comments/Gait Description FWW for energy conservation due to SOA with activity Balance Sitting Static: Normal Sitting Dynamic: Normal Standing Static: Normal Standing Dynamic: Normal Assessment/Needs 48 y.o. male, will be seen short term by skilled PT to address pulmonary function with mobility to ensure safe return to independent PLOF. Patient does display increase SOA and decreased SAO2 to 88% on 4L O2 NC during activity. Rehab Potential: Fair PT Short Term Goals Short Term Goals Time Frame: Dec 09, 2018 Transfers (B,C,W/C) (FIM): 6 Gait (FIM): 6 Distance (FIM): 3=150 ft Gait Distance Comment: >300' Gait Level of Assist: 6 Gait Assistive Device: None, FWW PT Plan Problem List Problem List: Activity Tolerance Treatment/Plan Treatment Plan: Continue Plan of Care Treatment Plan: Education, Functional Activity Jonatan, Functional Strength, Gait , Safety, Therapeutic Exercise Treatment Duration: Dec 09, 2018 Frequency: 3 times per week Estimated Hrs Per Day: .25 hour per day Patient and/or Family Agrees t: Yes Time/GCodes Time In: 1240 Time Out: 1257 Total Billed Treatment Time: 17 Total Billed Treatment 1 visit EVModC 17 min BENJAMIN VELARDE PT Dec 07, 2018 14:03
--- NOTE | 2018-12-07 15:12 | Cardiology Progress Note ---
Cardiology SOAP Progress Note Subjective: Still short of breath however better than yesterday Objective: I&O/Vital Signs 12/07/18 12/07/18 12/07/18 12/07/18 06:31 07:00 08:00 08:00 Temp 97.5 Pulse 104 110 Resp 20 B/P (MAP) 128/91 (103) Pulse Ox 95 95 O2 Delivery Nasal Cannula Nasal Cannula Nasal Cannula O2 Flow Rate 2.00 2.00 2.00 12/07/18 12/07/18 12/07/18 12/07/18 11:30 12:00 12:40 15:53 Temp 98.0 Pulse 109 105 Resp 18 B/P (MAP) 132/91 (105) Pulse Ox 95 98 98 O2 Delivery Nasal Cannula Nasal Cannula Nasal Cannula O2 Flow Rate 2.00 2.00 2.00 12/06/18 23:59 Intake Total 3745 ml Output Total 3730 ml Balance 15 ml Weight (Pounds): 299 Weight (Ounces): 9.0 Weight (Calculated Kilograms): 135.006289 Constitutional: appears stated age, AAO x 3, apparent distress, well-developed , well-nourished Respiratory: accessory muscle use, respiratory distress; No chest tender, No chest expansion is symmetric; chest is bilaterally symmetric; No lungs clear to percussion, No lungs clear to auscultation; crackles; No rhonchi, No rales, No stridor, No wheezing, No pleural rub, No other Cardiovascular: regular rate-rhythm; No irregularly irregular, No extra beats, No parasternal heave is noted, No JVD, No edema, No bradycardia; tachycardia; No point of maximal impulse, No cardiac thrills are palpable; S1 and S2; No gallop/S3, No gallop/S4, No diastolic murmur, No systolic murmur, No friction rub, No click, No other Gastrointestional: No tender, No soft, No round, No distended, No pulsatile mass, No organomegaly, No guarding, No rebound, No tenderness, No hernia, No mass, No audible bowel sounds, No abnormal bowel sounds, No abdominal bruits, No spleenomegaly, No other Extremities: No normal range of motion, No non-tender, No normal inspection, No pedal edema, No calf tenderness, No normal capillary refill, No pelvis stable , No calf tenderness, No inflammation, No pedal edema, No slow capillary refill ; swelling; No other, No abrasion, No clubbing, No cyanosis, No ecchymosis, No laceration, No no lower extremity edema bilateral, No significant edema, No tenderness, No wound Neurologic/Psychiatric: no motor/sensory deficits, alert, normal mood/affect, oriented x 3, power is 5/5 both on sides Skin: No normal color, No warm/dry, No cyanosis, No cool, No diaphoresis, No damp, No ecchymosis, No jaundice, No mottled, No pallor, No rash, No tattoos/ piercings, No ulcerations, No rash on exposed areas, No ulcerations on exposed areas, No other Results/Procedures: Labs Laboratory Tests 12/06/18 20:45: Glucometer 212H 12/07/18 05:15: White Blood Count 6.8, Red Blood Count 5.33, Hemoglobin 14.7, Hematocrit 44, Mean Corpuscular Volume 83, Mean Corpuscular Hemoglobin 28, Mean Corpuscular Hemoglobin Concent 33, Red Cell Distribution Width 13.7, Platelet Count 130, Mean Platelet Volume 11.3H, Neutrophils (%) (Auto) 65, Lymphocytes (%) (Auto) 21 , Monocytes (%) (Auto) 13H, Eosinophils (%) (Auto) 1, Basophils (%) (Auto) 0, Neutrophils # (Auto) 4.4, Lymphocytes # (Auto) 1.4, Monocytes # (Auto) 0.9, Eosinophils # (Auto) 0.1, Basophils # (Auto) 0.0, Sodium Level 139, Potassium Level 3.7, Chloride Level 103, Carbon Dioxide Level 25, Anion Gap 11, Blood Urea Nitrogen 12, Creatinine 0.91, Estimat Glomerular Filtration Rate > 60, BUN/ Creatinine Ratio 13, Glucose Level 233H, Calcium Level 8.9, Phosphorus Level 4.5 , Magnesium Level 2.0 12/07/18 05:29: Glucometer 229H 12/07/18 12:01: Glucometer 173H 12/07/18 16:44: Glucometer 182H Microbiology 12/06/18 Blood Culture - Preliminary, Resulted No growth 12/04/18 MRSA Screen - Final, Complete MRSA not isolated A/P: Assessment/Dx: Bilateral pulmonary embolism, New diagnosis of cardiomyopathy, Acute systolic congestive heart failure, Diabetes, Active smoking. Plan: Bilateral pulmonary embolism, stable hemodynamically. Still requiring 2 L of oxygen to keep oxygen saturation over 90 percent. On my examination oxygen saturation was 94 percent. Mild RV dysfunction with normal PA pressure. Oral anticoagulation therapy for 6 months. Left lower extremity DVT. Sinus tachycardia: Likely due to pulmonary embolism and severe cardiomyopathy. We will gradually start beta blockers for cardiomyopathy. New diagnosis of dilated cardiomyopathy, echocardiogram shows EF of 20-25 percent. Global hypokinesis. Will require coronary evaluation when more stable. Start low-dose lisinopril. Low-dose beta blockers. Recommend LifeVest for primary prevention of sudden cardiac . Acute systolic congestive heart failure, IV Lasix daily. Strict input and output record. Salt and fluid restriction. [id number] aortic stenosis: Continue to follow clinically. Diabetes, Active smoking. Strongly recommended to quit. Suspicious pneumonia with fever. Defer to Dr. Tian. Thank you for your consultation. Please call me if you have any questions. Merline Wright MD, FACP, FACC, FSCAI, FHRS, CCDS Interventional Cardiology Cardiac Electrophysiology Vascular Medicine and Endovascular Interventions Focused Exam Lactate Level 12/06/18 07:15: Lactic Acid Level 1.10 Nick WRIGHT MD Dec 07, 2018 3:11 pm
--- NOTE | 2018-12-07 15:35 | Occupational Therapy Eval ---
OT Evaluation-General/PLF Medical Diagnosis Admission Date Dec 04, 2018 at 01:00 Medical Diagnosis: bilateral PE Onset Date: Dec 04, 2018 Therapy Diagnosis Therapy Diagnosis: Weakness Height/Weight Height (Feet): 6 Height (Inches): 1.00 Weight (Pounds): 299 Weight (Ounces): 9.0 Precautions Precautions/Isolations: Standard Precautions Safety Interventions: None Weight Bear Status Weight Bearing Restriction: Weight Bearing/Tolerated Referral Physician: Lencho Referral Reason: Activity Tolerance, Self Care, Evaluation/Treatment, Strengthening/ROM Medical History Pertinent Medical History: DM, HTN, Smoking Additional Medical History MS, DVT in bilateral lungs and left leg. EF of 20%. Lifevest per report for discharge. Reviewed History: Yes Social History Home: Apartment Current Living Status: Alone ADL-Prior Level of Function Therapy Code Descriptions/Definitions Functional [place] Measure: 0=Not Assessed/NA 4=Minimal Assistance 1=Total Assistance 5=Supervision or Setup 2=Maximal Assistance 6=Modified [place] 3=Moderate Assistance 7=Complete [place] Therapy Quality Codes: 6 Independent with activity with or without an assistive device 5 Patient requires set up or clean up by helper. Patient completes activity by themselves 4 Supervision or touching assist (CGA). [place] provide cues , steadying assist 3 The helper provides less than half the effort to complete the activity 2 The helper provides more than half the effort to complete the activity 1 Dependent. The helper does all the effort to complete an activity 7 Patient refused to complete or attempt activity 9 The patient did not perform the activity before the current illness or injury 88 Not attempted due to Medical conditions or safety concerns Functional Abilities and Goals: Independent: Patient completed the activities by him/herself, with or without an assistive device, with no assistance from a helper. Needed Some Help: Patient needed partial assistance from another person to complete activities. Dependent: A helper completed the activities for the patient. Unknown: Not Applicable: ADL PLOF Comments Pt. states that he was fully independent. Self Care: Independent Functional Cognition: Independent OT Current Status Subjective Pt. states that he is SOA. Has just finished showering. Mental Status/Objective Patient Orientation: Person, Place, Time, Situation Attachments: IV, Oxygen ADL-Treatment Therapy Code Descriptions/Definitions Functional [place] Measure: 0=Not Assessed/NA 4=Minimal Assistance 1=Total Assistance 5=Supervision or Setup 2=Maximal Assistance 6=Modified [place] 3=Moderate Assistance 7=Complete [place] Therapy Quality Codes: 6 Independent with activity with or without an assistive device 5 Patient requires set up or clean up by helper. Patient completes activity by themselves 4 Supervision or touching assist (CGA). [place] provide cues , steadying assist 3 The helper provides less than half the effort to complete the activity 2 The helper provides more than half the effort to complete the activity 1 Dependent. The helper does all the effort to complete an activity 7 Patient refused to complete or attempt activity 9 The patient did not perform the activity before the current illness or injury 88 Not attempted due to Medical conditions or safety concerns Bathing (FIM): 6 Lower Body Dressing (FIM): 6 Transfers (B, C, W/C) (FIM): 7 Shower Transfer (FIM): 7 Other Treatments Pt. in shower when OT attempted to go in room. OT came back at another time to check on pt. Pt. done with shower, and had dressed self in jeans. Pt. ambulated to bed, and then to chair independently. Pt. has 2 L 02 on but unsure if he wore during his shower. OT hooked pulse ox back up and pt's sats at 88%. Waited and then came back to 94%. Pt. states that he has some difficulty donning shoes and socks, but is not interested in AE for them. States that it really isn't a problem. States that he had no trouble donning clothing after shower. All needs are met while up in chair. Education OT Patient Education: Correct positioning, Modified ADL techniques, Reviewed precautions, Rehab process, Transfer techniques Teaching Recipient: Patient Teaching Methods: Demonstration, Discussion Response to Teaching: Verbalize Understanding, Return Demonstration OT Short Term Goals Short Term Goals Transfers (B,C,W/C) (FIM): 6 1=Demonstrate adherence to instructed precautions during ADL tasks. 2=Patient will verbalize/demonstrate understanding of assistive devices/ modifications for ADL. 3=Patient will improve strength/tolerance for activity to enable patient to perform ADL's. OT Snf Goals [employer] Consultant Goals Time Frame: Dec 07, 2018 Due to pt's independence, no skilled OT needs are warranted at this time. Pt. is encouraged to continue with out of bed activities for increased strength with nursing as needed. 1=Demonstrate adherence to instructed precautions during ADL tasks. 2=Patient will verbalize/demonstrate understanding of assistive devices/ modifications for ADL. 3=Patient will improve strength/tolerance for activity to enable patient to perform ADL's. OT Education/Plan Problem List/Assessment Assessment: No Skilled OT Needs ID'd Discharge Recommendations Plan/Recommendations: Discharge/Goals Met Treatment Plan/Plan of Care Treatment,Training & Education: Yes Treatment Duration: Dec 07, 2018 Frequency: 5 times per week Estimated Hrs Per Day: Other (No OT at this time.) Agreement: Yes Rehab Potential: Good Time/GCodes Start Time: 14:55 Stop Time: 15:05 Total Time Billed (hr/min): 10 Billed Treatment Time 1, GLADYS NASSAR OT Dec 07, 2018 15:35
[2018-12-07 16:00] VITALS: BP 121/86
--- NOTE | 2018-12-07 16:30 | NUR ---
Pastoral Care Visit.
[2018-12-07] MEDS: FUROSEMIDE 40 MG/4 ML INJ (LASIX) IVP SCH (18:26)
[2018-12-07 20:00] VITALS: BP 119/84
[2018-12-07] MEDS: meTOprolol TARTRATE 25 MG (LOPRESSOR) TABLET PO SCH (21:00)
[2018-12-08 00:51] VITALS: BP 128/83
[2018-12-08] MEDS: RT-ALBUTEROL SULF 2.5 MG/3 ML PRE-MIX VIAL INH SCH ×4 (02:17→15:03)
[2018-12-08] MEDS: PIPERACILLIN SODIUM/TAZOBACTAM 4.5 GM in NS (IVPB) 100 ML IV SCH ×2 (02:21→11:30)
[2018-12-08] MEDS: ACETAMINOPHEN 500 MG TAB (TYLENOL) PO PRN (03:15)
[2018-12-08] MEDS: NS IV 1000 ML 1,000 ML IV SCH ×2 (03:15→16:44)
[2018-12-08 04:03] VITALS: BP 119/75
[2018-12-08 04:43] LABS: BASOPHILS % (AUTO) 0 % (0-10); EOSINOPHILS # (AUTO) 0.1 10^3/uL (0.0-0.3); EOSINOPHILS % (AUTO) 2 % (0-10); HEMATOCRIT 44 % (40-54); HEMOGLOBIN 14.4 G/DL (13.3-17.7); LYMPHOCYTES # (AUTO) 1.4 X 10^3 (1.0-4.0); LYMPHOCYTES % (AUTO) 22 % (12-44); MEAN CORPUSCULAR HEMOGLOBIN 28 PG (25-34); MEAN CORPUSCULAR HGB CONC 33 G/DL (32-36); MEAN CORPUSCULAR VOLUME 83 FL (80-99); MEAN PLATELET VOLUME 11.2 FL (7.4-10.4); MONOCYTES # (AUTO) 0.9 X 10^3 (0.0-1.0); MONOCYTES % (AUTO) 13 % (0-12); NEUTROPHILS # (AUTO) 4.1 X 10^3 (1.8-7.8); NEUTROPHILS % (AUTO) 63 % (42-75); PLATELET COUNT 139 10^3/uL (130-400); RED BLOOD COUNT 5.24 10^6/uL (4.35-5.85); RED CELL DISTRIBUTION WIDTH 13.5 % (10.0-14.5); WHITE BLOOD COUNT 6.5 10^3/uL (4.3-11.0)
[2018-12-08 05:09] LABS: BUN/CREATININE RATIO 11; CALCIUM 9.1 MG/DL (8.5-10.1); CARBON DIOXIDE 25 MMOL/L (21-32); CHLORIDE 105 MMOL/L (98-107); CREATININE SERUM 0.84 MG/DL (0.60-1.30); GFR ESTIMATED > 60; GLUCOSE 189 MG/DL (70-105); MAGNESIUM 1.8 MG/DL (1.8-2.4); POTASSIUM 3.6 MMOL/L (3.6-5.0); SODIUM 140 MMOL/L (135-145)
[2018-12-08] MEDS: inSUlin ASPART (NovoLOG) 1 UNIT/0.01 ML (CHARGE PER UNIT) SC SCH ×3 (05:50→16:44)
[2018-12-08] MEDS: RIVAROXABAN 15 MG TABLET (XARELTO) PO SCH ×2 (06:20→16:44)
[2018-12-08 08:00] VITALS: BP 126/79
[2018-12-08] MEDS: meTOprolol TARTRATE 25 MG (LOPRESSOR) TABLET PO SCH (08:11)
[2018-12-08] MEDS: lisINopril 5 MG (PRINIVIL) TABLET PO SCH (08:12)
[2018-12-08] MEDS: FUROSEMIDE 40 MG/4 ML INJ (LASIX) IVP SCH (08:12)
--- NOTE | 2018-12-08 08:54 | Pulmonary Progress Note ---
Subjective Time Seen by a Provider: 10:11 Subjective/Events-last exam SOB is improved. Sepsis Event Evaluation Height, Weight, BMI Height: 6'1.00" Weight: 301lbs. 9.0oz. 136.207974hv; 39.2 BMI Method: Focused Exam Lactate Level 12/06/18 07:15: Lactic Acid Level 1.10 Exam Exam Vital Signs Date Time Temp Pulse Resp B/P (MAP) Pulse Ox O2 Delivery O2 Flow Rate FiO2 12/08/18 07:01 95 12/08/18 06:27 95 Nasal Cannula 2.00 12/08/18 04:03 98.1 104 20 119/75 (90) 98 Nasal Cannula 2.00 12/08/18 02:19 100 Nasal Cannula 2.00 12/08/18 01:00 110 12/08/18 00:51 97.8 109 20 128/83 (98) 95 Nasal Cannula 2.00 12/07/18 22:41 96 Nasal Cannula 2.00 12/07/18 20:00 Nasal Cannula 2.00 12/07/18 20:00 97.1 118 22 119/84 (96) 98 Nasal Cannula 2.00 12/07/18 19:11 94 Nasal Cannula 2.00 12/07/18 19:00 110 12/07/18 16:00 97.3 111 22 121/86 (98) 98 Nasal Cannula 2.00 12/07/18 15:53 98 Nasal Cannula 2.00 12/07/18 12:40 105 12/07/18 12:00 98.0 109 18 132/91 (105) 98 Nasal Cannula 2.00 12/07/18 11:30 95 Nasal Cannula 2.00 I & O 12/08/18 07:00 Intake Total 2924 ml Output Total 3200 ml Balance -276 ml Height & Weight Height: 6'1.00" Weight: 301lbs. 9.0oz. 136.409264pc; 39.2 BMI Method: General Appearance: No Apparent Distress, WD/WN, Chronically ill, Obese HEENT: PERRL/EOMI Neck: Full Range of Motion Respiratory: Chest Non Tender, Lungs Clear, No Accessory Muscle Use, No Respiratory Distress, Decreased Breath Sounds, Respiratory Distress (mild) Cardiovascular: Regular Rate, Rhythm, No Edema, No Gallop, No JVD, No Murmur, Normal Peripheral Pulses Capillary Refill: Less Than 3 Seconds Gastrointestinal: normal bowel sounds, non tender, soft Extremity: Normal Capillary Refill, Normal Inspection, Normal Range of Motion, Non Tender, No Calf Tenderness, No Pedal Edema Neurologic/Psychiatric: Alert, Oriented x3, No Motor/Sensory Deficits, Normal Mood/Affect Skin: Normal Color, Warm/Dry Lymphatic: No Adenopathy Results Lab Laboratory Tests 12/07/18 05:15 12/08/18 04:25 Assessment/Plan Assessment/Plan Acute provoked PE- No prior episodes of DVT/PE - Xarelto 15mg BID x 21 days then 20mg daily -check ambulatory desat test to see if pt qualifies for home oxygen Severe cardiomyopathy with EF of 20% -Needs life vest and cardiac cath prior to discharge per cardiology. -Dr. Wright with do cardiac cath as out patient -Lasix LLE DVT Obesity with CASSY hx - noncompliant with CPAP therapy Tobacco use -Education PT will need close out patient f/u with cardiology and sleep study. GADIEL GRIJALVA DO Dec 08, 2018 08:54
--- NOTE | 2018-12-08 09:13 | NUR ---
CM/SS spoke with the patient regarding a plan when discharge is option. He wants to return to his home in [place], though now given the travel here caused medical complications then he is concerned about when that would be safe for him to do. He has a friend here locally that he was visiting and can stay with until able to travel home.
[2018-12-08] MEDS ORDERED: RIVA15TA PO (09:32)
[2018-12-08] MEDS ORDERED: RIVA20TA PO (09:32)
--- NOTE | 2018-12-08 10:06 | NUR ---
PT QUALIFIES FOR HOME 02 AT REST AND WITH EXERTION. PTS SP02 AT REST ON RA WAS 85% PT THEN PLACED ON 2LPM THEN SP02 RETURNED TO 95% AFTER 3 MINS. PT QUALIFIES 2LPM AT ALL TIMES. Addendum: 12/08/18 at 1006 by HEIDI SEAY RT Amended: Links added.
[2018-12-08] MEDS ORDERED: METO-333 PO (10:18)
[2018-12-08] MEDS ORDERED: CEFD300C3 PO (10:18)
[2018-12-08] MEDS ORDERED: LISI-556 PO (10:18)
[2018-12-08] MEDS ORDERED: GLYB2.5T4 PO (10:18)
--- NOTE | 2018-12-08 10:23 | Discharge Summary-Hospitalist ---
Diagnosis/Chief Complaint Date of Admission Dec 04, 2018 at 01:00 Date of Discharge Discharge Date: Dec 08, 2018 Admission Diagnosis Bilateral pulmonary emboli. 2.left-sided deep venous thrombosis. 3.hypertension by history. 4.diabetes by history. 5.multiple sclerosis by history Discharge Diagnosis (1) Bilateral pulmonary embolism Status: Acute (2) DVT (deep venous thrombosis) Status: Acute (3) Cardiomyopathy Status: Acute (4) Diabetes mellitus Status: Chronic (5) Multiple sclerosis Status: Chronic (6) Pneumonia Status: Acute (7) Dependence on supplemental oxygen Status: Acute Discharge Summary Discharge Physical Exam Allergies: Coded Allergies: No Known Drug Allergies (Unverified , 12/04/18) Vitals & I&Os Vital Signs Date Time Temp Pulse Resp B/P (MAP) Pulse Ox O2 Delivery O2 Flow Rate FiO2 12/08/18 10:07 96 Nasal Cannula 2.00 12/08/18 08:00 97.2 103 20 126/79 (95) General Appearance: No Apparent Distress, WD/WN, Chronically ill Respiratory: Chest Non Tender, Lungs Clear, Normal Breath Sounds, No Accessory Muscle Use, No Respiratory Distress Neurologic/Psychiatric: Alert, Oriented x3, No Motor/Sensory Deficits, Normal Mood/Affect Hospital Course Hospital course: Patient had an uncomplicated hospital course he was admitted to ICU from [facility] due to bilateral pulmonary emboli with a left lower extremity DVT he was placed on anticoagulation and oxygen supplementation and monitor closely. On follow-up chest x-ray did show an infiltrate that was treated with Zosyn and nebulizer treatments. Cardiology and pulmonology were appreciated in providing their expertise. Echocardiogram revealed ejection fraction of 20 percent so LifeVest was fitted and he will undergo cardiac catheterization for etiology of cardiomyopathy as an outpatient. Patient did require home oxygen that was set up. Patient will be maintained on anticoagulation and will close follow-up with Dr. [facility] to obtain a provider in addition to cardiology for cardiac catheterization. Labs (last 24 hrs) Laboratory Tests 12/07/18 16:44: Glucometer 182H 12/07/18 21:38: Glucometer 362H 12/08/18 04:25: White Blood Count 6.5, Red Blood Count 5.24, Hemoglobin 14.4, Hematocrit 44, Mean Corpuscular Volume 83, Mean Corpuscular Hemoglobin 28, Mean Corpuscular Hemoglobin Concent 33, Red Cell Distribution Width 13.5, Platelet Count 139, Mean Platelet Volume 11.2H, Neutrophils (%) (Auto) 63, Lymphocytes (%) (Auto) 22 , Monocytes (%) (Auto) 13H, Eosinophils (%) (Auto) 2, Basophils (%) (Auto) 0, Neutrophils # (Auto) 4.1, Lymphocytes # (Auto) 1.4, Monocytes # (Auto) 0.9, Eosinophils # (Auto) 0.1, Basophils # (Auto) 0.0, Sodium Level 140, Potassium Level 3.6, Chloride Level 105, Carbon Dioxide Level 25, Anion Gap 10, Blood Urea Nitrogen 9, Creatinine 0.84, Estimat Glomerular Filtration Rate > 60, BUN/ Creatinine Ratio 11, Glucose Level 189H, Calcium Level 9.1, Phosphorus Level 4.0 , Magnesium Level 1.8 12/08/18 05:22: Glucometer 162H 12/08/18 11:09: Glucometer 299H Microbiology 12/06/18 Blood Culture - Preliminary, Resulted No growth 12/04/18 MRSA Screen - Final, Complete MRSA not isolated Patient resulted labs reviewed. Pending Labs Laboratory Tests 12/08/18 04:25: White Blood Count 6.5, Red Blood Count 5.24, Hemoglobin 14.4, Hematocrit 44, Mean Corpuscular Volume 83, Mean Corpuscular Hemoglobin 28, Mean Corpuscular Hemoglobin Concent 33, Red Cell Distribution Width 13.5, Platelet Count 139, Mean Platelet Volume 11.2, Neutrophils (%) (Auto) 63, Lymphocytes (%) (Auto) 22 , Monocytes (%) (Auto) 13, Eosinophils (%) (Auto) 2, Basophils (%) (Auto) 0, Neutrophils # (Auto) 4.1, Lymphocytes # (Auto) 1.4, Monocytes # (Auto) 0.9, Eosinophils # (Auto) 0.1, Basophils # (Auto) 0.0, Sodium Level 140, Potassium Level 3.6, Chloride Level 105, Carbon Dioxide Level 25, Anion Gap 10, Blood Urea Nitrogen 9, Creatinine 0.84, Estimat Glomerular Filtration Rate > 60, BUN/ Creatinine Ratio 11, Glucose Level 189, Calcium Level 9.1, Phosphorus Level 4.0 , Magnesium Level 1.8 12/08/18 05:22: Glucometer 162 12/08/18 11:09: Glucometer 299 Discussion & Recommendations Discharge Planning: <30 minutes discharge planning Discharge Home Medications: Active Scripts Active Lasix (Furosemide) 40 Mg Tablet 40 Mg PO DAILY Cefdinir 300 Mg Capsule 300 Mg PO BID Glyburide 2.5 Mg Tablet 2.5 Mg PO DAILY Lisinopril 5 Mg Tablet 2.5 Mg PO DAILY Metoprolol Tartrate 25 Mg Tablet 12.5 Mg PO BID Xarelto (Rivaroxaban) 20 Mg Tablet 20 Mg PO DAILY@1700 90 Days START AFTER XARELTO 15MG BID IS COMPLETE Xarelto (Rivaroxaban) 15 Mg Tablet 15 Mg PO BID@07,17 20 Days TAKE BID X 20 DAYS THEN CHANGE TO 20MG PO DAILY Instructions to patient/family Please see electronic discharge instructions given to patient. Clinical Quality Measures DVT/VTE Risk/Contraindication: Risk Factor Score Per Nursin RFS Level Per Nursing on Admit: 4+=Very High Problem Qualifiers (1) DVT (deep venous thrombosis): DVT location: lower extremity Affected thrombotic vein of extremity: unspecified vein of extremity Laterality: left (2) Cardiomyopathy: Cardiomyopathy type: unspecified Qualified Codes: I42.9 - Cardiomyopathy, unspecified (3) Diabetes mellitus: Diabetes mellitus type: type 2 Diabetes mellitus senior care insulin use: without lobsterman use Diabetes mellitus complication status: with unspecified complications Qualified Codes: E11.8 - Type 2 diabetes mellitus with unspecified complications (4) Pneumonia: Pneumonia type: due to unspecified organism Laterality: unspecified laterality Lung location: unspecified part of lung Qualified Codes: J18.9 - Pneumonia, unspecified organism CHET ACEVEDO DO Dec 08, 2018 10:23
--- NOTE | 2018-12-08 10:25 | Cardiology Progress Note ---
Cardiology SOAP Progress Note Subjective: Still short of breath. Slightly better than yesterday. Objective: I&O/Vital Signs 12/07/18 12/08/18 12/08/18 12/08/18 22:41 00:51 01:00 02:19 Temp 97.8 Pulse 109 110 Resp 20 B/P (MAP) 128/83 (98) Pulse Ox 96 95 100 O2 Delivery Nasal Cannula Nasal Cannula Nasal Cannula O2 Flow Rate 2.00 2.00 2.00 12/08/18 12/08/18 12/08/18 12/08/18 04:03 06:27 07:01 08:00 Temp 98.1 97.2 Pulse 104 95 103 Resp 20 20 B/P (MAP) 119/75 (90) 126/79 (95) Pulse Ox 98 95 99 O2 Delivery Nasal Cannula Nasal Cannula Nasal Cannula O2 Flow Rate 2.00 2.00 2.00 12/08/18 12/08/18 12/08/18 08:00 10:03 10:07 Pulse Ox 96 96 O2 Delivery Nasal Cannula Nasal Cannula O2 Flow Rate 2.00 2.00 2.00 12/08/18 00:00 Intake Total 2124 ml Output Total 2800 ml Balance -676 ml Weight (Pounds): 301 Weight (Ounces): 9.0 Weight (Calculated Kilograms): [id number] Constitutional: appears stated age, AAO x 3, well-developed, well-nourished Respiratory: accessory muscle use; No chest tender, No chest expansion is symmetric; chest is bilaterally symmetric; No lungs clear to percussion, No lungs clear to auscultation; crackles; No rhonchi, No rales, No stridor, No wheezing, No pleural rub, No other Cardiovascular: regular rate-rhythm; No irregularly irregular, No extra beats, No parasternal heave is noted, No JVD, No edema, No bradycardia; tachycardia; No point of maximal impulse, No cardiac thrills are palpable; S1 and S2; No gallop/S3, No gallop/S4, No diastolic murmur, No systolic murmur, No friction rub, No click, No other Gastrointestional: No tender, No soft, No round, No distended, No pulsatile mass, No organomegaly, No guarding, No rebound, No tenderness, No hernia, No mass, No audible bowel sounds, No abnormal bowel sounds, No abdominal bruits, No spleenomegaly, No other Extremities: No normal range of motion, No non-tender, No normal inspection, No pedal edema, No calf tenderness, No normal capillary refill, No pelvis stable , No calf tenderness, No inflammation, No pedal edema, No slow capillary refill ; swelling; No other, No abrasion, No clubbing, No cyanosis, No ecchymosis, No laceration, No no lower extremity edema bilateral, No significant edema, No tenderness, No wound Neurologic/Psychiatric: no motor/sensory deficits, alert, normal mood/affect, oriented x 3, power is 5/5 both on sides Skin: No normal color, No warm/dry, No cyanosis, No cool, No diaphoresis, No damp, No ecchymosis, No jaundice, No mottled, No pallor, No rash, No tattoos/ piercings, No ulcerations, No rash on exposed areas, No ulcerations on exposed areas, No other Results/Procedures: Labs Laboratory Tests 12/07/18 12:01: Glucometer 173H 12/07/18 16:44: Glucometer 182H 12/07/18 21:38: Glucometer 362H 12/08/18 04:25: White Blood Count 6.5, Red Blood Count 5.24, Hemoglobin 14.4, Hematocrit 44, Mean Corpuscular Volume 83, Mean Corpuscular Hemoglobin 28, Mean Corpuscular Hemoglobin Concent 33, Red Cell Distribution Width 13.5, Platelet Count 139, Mean Platelet Volume 11.2H, Neutrophils (%) (Auto) 63, Lymphocytes (%) (Auto) 22 , Monocytes (%) (Auto) 13H, Eosinophils (%) (Auto) 2, Basophils (%) (Auto) 0, Neutrophils # (Auto) 4.1, Lymphocytes # (Auto) 1.4, Monocytes # (Auto) 0.9, Eosinophils # (Auto) 0.1, Basophils # (Auto) 0.0, Sodium Level 140, Potassium Level 3.6, Chloride Level 105, Carbon Dioxide Level 25, Anion Gap 10, Blood Urea Nitrogen 9, Creatinine 0.84, Estimat Glomerular Filtration Rate > 60, BUN/ Creatinine Ratio 11, Glucose Level 189H, Calcium Level 9.1, Phosphorus Level 4.0 , Magnesium Level 1.8 12/08/18 05:22: Glucometer 162H Microbiology 12/06/18 Blood Culture - Preliminary, Resulted No growth 12/04/18 MRSA Screen - Final, Complete MRSA not isolated A/P: Assessment/Dx: Bilateral pulmonary embolism, New diagnosis of cardiomyopathy, Acute systolic congestive heart failure, Diabetes, Active smoking. Plan: Bilateral pulmonary embolism, stable hemodynamically. Still requiring 2 L of oxygen to keep oxygen saturation over 90 percent. On my examination oxygen saturation was 95 percent. Mild RV dysfunction with normal PA pressure. Oral anticoagulation therapy for at least 6 months. Left lower extremity DVT. Require home oxygen. Sinus tachycardia: Likely due to pulmonary embolism and severe cardiomyopathy. We will gradually start beta blockers for cardiomyopathy. New diagnosis of dilated cardiomyopathy, echocardiogram shows EF of 20-25 percent. Global hypokinesis. Will require coronary evaluation when more stable. Start low-dose lisinopril. Low-dose beta blockers. LifeVest for primary prevention of sudden cardiac was ordered yesterday. The [employer] is still reviewing of our application. Final decision up to the company. If the company approves a lifevest, the patient will leave with a lifevest otherwise he'll be discharged by the primary team without a lifevest. I spoke to the patient and he understands the risks. I'll follow-up in the next one to 2 weeks. Acute systolic congestive heart failure, IV Lasix daily. Strict input and output record. Salt and fluid restriction. [id number] aortic stenosis: Continue to follow clinically. Diabetes, Active smoking. Strongly recommended to quit. Suspicious pneumonia with fever. Defer to Dr. Tian. Thank you for your consultation. Please call me if you have any questions. Merline Wright MD, FACP, FACC, FSCAI, FHRS, CCDS Interventional Cardiology Cardiac Electrophysiology Vascular Medicine and Endovascular Interventions Focused Exam Lactate Level 12/06/18 07:15: Lactic Acid Level 1.10 Nick WRIGHT MD Dec 08, 2018 10:25
--- NOTE | 2018-12-08 11:14 | NUR ---
CM/SS spoke with the patient and he is now thinking he will remain with the friend here for awhile to recuperate more and then travel back to [place] at later time. Spoke with Danni and he will be back to see patient around noon. [facility] will cover the down payment for the life vest, have spoken to them and they are working on this process and would likely have a check available around 2pm. [facility] program will cover about $45 of patient necessary prescriptions at discharge, this is in conjunction with the [facility] pharmacy program. [employer] will do the cane and oxygen through [facility].
[2018-12-08] MEDS ORDERED: FURO-124 PO (11:54)
[2018-12-08 12:00] VITALS: BP 126/79
--- NOTE | 2018-12-08 13:58 | NUR ---
THIS RN RECEIVED REPORT FROM LORETTA MARES. WILL ASSUME PATIENT CARE AT THIS TIME.
[2018-12-08 16:00] VITALS: BP 129/82
[2018-12-08 18:20] VITALS: BP 129/82
--- NOTE | 2018-12-08 18:20 | NUR ---
MUNIR RIVERA demonstrates understanding of discharge instructions and accurately returns instructions upon questioning. Copy of Post-Discharge Instructions and Medication Discharge Instructions given to PT. MUNIR RIVERA is able to manage continuing needs after discharge. Patients belongings returned to PT. Skin dry and intact; no breakdown noted. Patient discharged from [facility] on 12/08/18 at 1820. MUNIR RIVERA left floor accompanied by STAFF.
[2018-12-29] MEDS ORDERED: RIVAROXABAN 20 MG TABLET (XARELTO) PO SCH (17:00)
== END 2018-12-08 18:20 | disposition home or self-care (01) | DRG 175 ==
LOC: ICU 01:00 → 4TH 15:30
PROVIDERS: ADMIT Family Medicine; ATTEND Family Medicine
DX: I26.99 Other pulmonary embolism without acute cor pulmonale (principal); I82.412 Acute embolism and thrombosis of left femoral vein; I11.0 Hypertensive heart disease with heart failure; I50.21 Acute systolic (congestive) heart failure; I42.9 Cardiomyopathy, unspecified; E11.9 Type 2 diabetes mellitus without complications; J18.9 Pneumonia, unspecified organism; I35.0 Nonrheumatic aortic (valve) stenosis; G35 Multiple sclerosis; F17.210 Nicotine dependence, cigarettes, uncomplicated; E66.9 Obesity, unspecified; G47.33 Obstructive sleep apnea (adult) (pediatric); R00.0 Tachycardia, unspecified; Z68.39 Body mass index [BMI] 39.0-39.9, adult; Z91.19 Patient's noncompliance with other medical treatment and regimen; Z99.81 Dependence on supplemental oxygen
CPT/HCPCS: 36415; 36600; 71045; 71046; 80048; 80053; 81000; 82805; 82962; 83605; 83735; 83880; 84100; 85025; 87040; 87081; 90686; 93005; 93306; 93970; 94640; 94760; 94761

== ENCOUNTER → 2018-12-14 | Day surgery (SDC) | payer OTHER ==
[2018-12-14] VITALS (8 sets, daily range): BP systolic 103–133; BP diastolic 72–96
[~2018-12-14] VITALS: Ht 185.4 cm; Wt 134.7 kg
[~2018-12-14] MED LIST: ATOR20TA49 PO; CEFD300C3 PO; FLU QUADRIvalent (5+ YOA) 2018-2019 (AFLURIA) 0.5 ML IM ONE; FURO-124 PO; GLYB2.5T4 PO; HEParin (CATH LAB) 2,000 ML IV ONE; HEParin 1000 UNIT/ML (10ML VIAL) FOR BOLUS ONE; HYDROcodone/APAP 5 MG/325 MG (LORTAB) TAB PO ONE; LIDOCAINE 1% INJ 20 ML 20 ML VIAL ONE; LISI-556 PO; METO-333 PO; MIDAZOLAM 5 MG/5 ML (VERSED) VIAL ONE; NITRO DRIP 25000 MCG/D5W 250 ML IV ONE; NS IV 1000 ML 1,000 ML IV SCH; NS IV 1000 ML 1,000 ML ONE; POTA10CA43 PO; RIVA15TA PO; RIVA20TA PO; VERAPAMIL 5 MG/2 ML (CALAN) VIAL IV ONE; fentaNYL INJECTION 100 MCG/2 ML AMP ONE
[2018-12-14 10:50] LABS: HEMOGLOBIN 15.9 G/DL (13.3-17.7); MEAN PLATELET VOLUME 10.8 FL (7.4-10.4); RED BLOOD COUNT 5.98 10^6/uL (4.35-5.85); RED CELL DISTRIBUTION WIDTH 13.5 % (10.0-14.5); WHITE BLOOD COUNT 4.1 10^3/uL (4.3-11.0)
[2018-12-14 11:08] LABS: BUN/CREATININE RATIO 10; CARBON DIOXIDE 29 MMOL/L (21-32); CHLORIDE 103 MMOL/L (98-107); CREATININE SERUM 0.88 MG/DL (0.60-1.30); INR 1.1 (0.8-1.4); POTASSIUM 4.4 MMOL/L (3.6-5.0); SODIUM 140 MMOL/L (135-145)
[2018-12-14 11:09] LABS: ALANINE AMINOTRANSFERASE 39 U/L (0-55); ALBUMIN 3.8 GM/DL (3.2-4.5); ALKALINE PHOSPHATASE 84 U/L (40-136); BILIRUBIN,TOTAL 0.3 MG/DL (0.1-1.0); CALCIUM 9.4 MG/DL (8.5-10.1); CHOLESTEROL 224 MG/DL (< 200); GFR ESTIMATED > 60; GLUCOSE 174 MG/DL (70-105); HDL CHOLESTEROL 37 MG/DL (40-60); TOTAL PROTEIN 7.9 GM/DL (6.4-8.2); TRIGLYCERIDES 119 MG/DL (<150); VLDL CHOLESTEROL 24 MG/DL (5-40)
--- NOTE | 2018-12-14 13:37 | Cardiac Procedure Note-CS/ASA ---
Pre-Procedure Note Pre-Op Procedure Note H&P Reviewed The H&P was reviewed, patient examined and no changes noted. Date H&P Reviewed: Dec 14, 2018 Time H&P Reviewed: 12:00 Conscious Sedation Pre-Proced Time 12:00 ASA Score 3 For ASA 3 and 4: Consider anesthesia and medical clearance. Also, for patients with a history of failed moderate sedation consider anesthesia. Airway Lungs Heart ASA score ASA 1: a normal healthy patient ASA 2: a patient with a mild systemic disease (mid diabetes, controlled hypertension, obesity ASA 3: a patient with a severe systemic disease that limits activity (angina , COPD, prior Myocardial infarction) ASA 4: a patient with an incapacitating disease that is a constant threat to life (CHF, renal failure) ASA 5: a moribund patient not expected to survive 24 hrs. (ruptured aneurysm) ASA 6: a declared brain patient whose organs are being harvested. For emergent operations, add the letter E after the classification Mallampati Classification Grade 1 Sedation Plan Analgesia, Amnesia, Plan communicated to team members, Discussed options with patient/fam, Discussed risks with patient/fam The patient is an appropriate candidate to undergo the planned procedure, sedation, and anesthesia. The patient immediately re-assessed prior to indication. Nick CASTAÑEDA MD Dec 14, 2018 13:37
--- NOTE | 2018-12-14 13:46 | Coronary Angiography Report ---
Coronary Angiography Report DATE OF PROCEDURE: 12/14/18 INDICATION: New onset cardiomyopathy. PREOPERATIVE DIAGNOSIS: New onset cardiomyopathy. POSTOPERATIVE DIAGNOSIS: Nonischemic cardiomyopathy. HISTORY: This is a 48-year-old gentleman with history of active smoking, diabetes who presented with severe shortness of breath and was found to have bilateral pulmonary embolism. Echocardiogram showed an EF of 20-25 percent. Patient has new onset cardiomyopathy and CAD needs to be ruled out. Therefore, the patient was scheduled for coronary angiography. PROCEDURES PERFORMED: 1.Coronary angiography. 2.Left heart catheterization. 3. Aortic root injection to find the ostium of the RCA. COMPLICATIONS: None. SPECIMENS: None. ESTIMATED BLOOD LOSS: 10 mL ANESTHESIA: Conscious sedation ANTICOAGULATION: IV heparin CONTRAST: 63 mL. FLUOROSCOPY: 5.4 minutes. FLOUROSCOPY DOSE: 962 mgy. PROCEDURE DETAILS: The patient is a 48 male and was brought to the laborer chemical processing after informed consent was taken. All the risks and complications were explained in detail; this included the risk of bleeding, vascular damage, stroke , AK and even . The patient was draped and prepped in the usual sterile fashion. Access was gained in the right radial artery with a 6 Romansh sheath. Coronary angiography and left heart catheterization was performed with the Shobonier catheter. We could not engage the right coronary artery therefore a root injection was done to assess the ostium of the RCA. We then took a JR4 diagnostic catheter and were able to engage the RCA. FINDINGS: 1.Left main: Patent. 2.LAD: Patent. 3.Left circumflex artery: Patent. 4.RCA: Patent. 5.Left heart catheterization: LV pressure 105/7 mmHg. LVEDP 16 mmHg. Aortic pressure 95/72 mmHg. Severe LV systolic dysfunction with an EF of 20 percent with global hypokinesis. No significant gradient across the aortic valve. CONCLUSIONS: Nonischemic cardiomyopathy. Continue aggressive cardiomyopathy treatment. Merline Wright MD, FACP, FACC, [facility] Interventional Cardiology Nick WRIGHT MD Dec 14, 2018 13:46
--- NOTE | 2018-12-14 13:50 | Discharge Inst-Post CATH ---
Discharge Inst-CATH/EP Post Cardiac Cath/EP D/C Inst Follow Up/Plan Dr Wright on previously scheduled appointment. CARDIAC CATH DISCHARGE INSTRUCTIONS *Hold Metformin for 48 hours post heart cath. ACTIVITY * Go Home directly and rest. * Limit activity of the leg (or wrist if it was used) for 7 days including aerobics, swimming, jogging, bicycling, etc. * Restrict stair-climbing for 7 days if possible, if not, climb up with your non -cath leg, then bring together on the same step. * Avoid lifting, pushing, pulling or excessive movement of the affected extremity for 7 days. * Customary sexual activity may be resumed after 2 days-use caution not to use a position that strains or causes pain to the affected extremity. * No driving for 24 hours. * NO SMOKING. * Avoid straining for bowel movements for 7 days. * Gentle walking on level ground is allowed. * Returning to work will depend on the type of procedure and the results. Your doctor will discuss this with you. CALL YOUR DOCTOR FOR ANY OF THE FOLLOWING: *If bleeding from the puncture site occurs- Apply gentle pressure to site with clean cloth and call your doctor or EMS. * If a knot or lump forms under the skin, increases in size, or causes pain. * If bruising appears to be worsening or moving further down your leg instead of disappearing. * Temperature above 101 F. CARE OF YOUR GROIN INCISION; * Bruising or purple discoloration of the skin near the puncture site is common. * You may shower only, no bathtub bathing for 5 days. Be careful to avoid slipping as your leg may feel stiff. * If a closure device was used on your femoral artery, please see the attached guide regarding care of the device and your leg. * Leave the dressing on, until removed by office staff. CARE OF YOUR WRIST INCISION; * Bruising or purple discoloration of the skin near the puncture site is common. * You may shower. * DO NOT submerge wrist. * Leave dressing on, until removed by office staff.. Nick WRIGHT MD Dec 14, 2018 13:50
--- NOTE | 2018-12-14 13:53 | Cardiology Discharge Summary ---
Diagnosis/Chief Complaint Date of Admission 12/14/2018 Date of Discharge 12/14/2018 Admission Diagnosis New onset cardiomyopathy Final/Discharge Diagnosis Patent epicardial coronary arteries. Nonischemic cardiomyopathy Chief Complaint/HPI Chief Complaint/HPI This is a 48-year-old gentleman with history of active smoking, diabetes who presented with severe shortness of breath and was found to have bilateral pulmonary embolism. Echocardiogram showed an EF of 20-25 percent. Patient has new onset cardiomyopathy and CAD needs to be ruled out. Therefore, the patient was scheduled for coronary angiography. Discharge Summary Procedures Coronary angiography revealed patent epicardial coronary arteries. LV gram showed severe LV systolic dysfunction with global hypokinesis. EF is 20 percent. Discharge Physical Examination Normal cardiovascular examination. Hospital Course Was the Problem List Reviewed?: Yes Stable. Pending Labs Laboratory Tests 12/14/18 10:42: White Blood Count 4.1, Red Blood Count 5.98, Hemoglobin 15.9, Hematocrit 50, Mean Corpuscular Volume 83, Mean Corpuscular Hemoglobin 27, Mean Corpuscular Hemoglobin Concent 32, Red Cell Distribution Width 13.5, Platelet Count 272, Mean Platelet Volume 10.8, Prothrombin Time 14.0, INR Comment 1.1, Activated Partial Thromboplast Time 50, Sodium Level 140, Potassium Level 4.4, Chloride Level 103, Carbon Dioxide Level 29, Anion Gap 8, Blood Urea Nitrogen 9, Creatinine 0.88, Estimat Glomerular Filtration Rate > 60, BUN/Creatinine Ratio 10, Glucose Level 174, Calcium Level 9.4, Corrected Calcium 9.6, Total Bilirubin 0.3, Aspartate Amino Transf (AST/SGOT) 18, Alanine Aminotransferase ( ALT/SGPT) 39, Alkaline Phosphatase 84, Total Protein 7.9, Albumin 3.8, Triglycerides Level 119, Cholesterol Level 224, LDL Cholesterol Direct 173, VLDL Cholesterol 24, HDL Cholesterol 37 Discussion & Recommendations Discussion Coronary angiography results discussed at length with the patient. Discharge instructions were also discussed. Patient will continue LifeVest for primary prevention of sudden cardiac . Continue aggressive goal-directed medical therapy for cardiomyopathy. Follow up appt.: Dr. Wright previously scheduled appointment. Dicharge Diet: Cardiac Diet, Low Sodium Diet Activity as Tolerated: Yes Home Medications Reviewed patient Home Medication Reconciliation performed by pharmacy medication reconciliations oil field technician and/or nursing. Patients Allergies have been reviewed. Discharge Home Medications: Reviewed and agree with Discharge Medication list on patient's Discharge Instruction sheet Condition at discharge Stable. Instructions to patient/family Dr Wright on previously scheduled appointment. Nick WRIGHT MD Dec 14, 2018 13:53
== END | disposition home or self-care (01) ==
LOC: CATH 10:02 → SDC 13:48
PROVIDERS: ATTEND Internal Medicine Interventional Cardiology
DX: I42.9 Cardiomyopathy, unspecified (principal); I26.99 Other pulmonary embolism without acute cor pulmonale; I82.402 Acute embolism and thrombosis of unspecified deep veins of left lower extremity; E11.9 Type 2 diabetes mellitus without complications; G35 Multiple sclerosis; G47.33 Obstructive sleep apnea (adult) (pediatric); F17.210 Nicotine dependence, cigarettes, uncomplicated; Z79.01 Long term (current) use of anticoagulants; Z79.899 Other long term (current) drug therapy
CPT/HCPCS: 36415; 80053; 80061; 85027; 85610; 85730; 87081; 90686; 93005; 93458; 93567

== ENCOUNTER 2018-12-29 14:59 | Emergency (ER) | payer SELFPAY ==
[~2018-12-29] VITALS: Ht 185.4 cm; Wt 124.7 kg
[~2018-12-29 14:59] MED LIST changes: -FLU QUADRIvalent (5+ YOA) 2018-2019 (AFLURIA) 0.5 ML IM ONE; -HEParin (CATH LAB) 2,000 ML IV ONE; -HEParin 1000 UNIT/ML (10ML VIAL) FOR BOLUS ONE; -HYDROcodone/APAP 5 MG/325 MG (LORTAB) TAB PO ONE; -LIDOCAINE 1% INJ 20 ML 20 ML VIAL ONE; -MIDAZOLAM 5 MG/5 ML (VERSED) VIAL ONE; -NITRO DRIP 25000 MCG/D5W 250 ML IV ONE; -NS IV 1000 ML 1,000 ML IV SCH; -NS IV 1000 ML 1,000 ML ONE; -VERAPAMIL 5 MG/2 ML (CALAN) VIAL IV ONE; -fentaNYL INJECTION 100 MCG/2 ML AMP ONE
--- NOTE | 2018-12-29 15:36 | ED Lower Extremity ---
General Chief Complaint: Lower Extremity Stated Complaint: L LEG SWELLING Nursing Triage Note: PT BROUGHT IN BY EMS WITH COMPLAINT OF LEFT LEG SWELLING. PT WAS DISCHARGED FROM HOSPITAL A FEW DAYS AGO WITH BLOOD CLOTS IN LEFT LEG. PT STATES THE SWELLING WAS BETTER, BUT NOW HAS INCREASED. Nursing Sepsis Screen: No Definite Risk Source: patient Exam Limitations: no limitations History of Present Illness Date Seen by Provider: Dec 29, 2018 Time Seen by Provider: 15:32 Initial Comments The patient is a 48-year-old black male whom I know from a previous admission. He presented here on December 04 with complaints of shortness of breath and swelling in his left leg. He was found to have left lower extremity DVT and bilateral pulmonary emboli. He had come to [place] by bus from [place] to visit a good friend and his family in [place]. He had a rather considerable clot load and required oxygen to maintain his SaO2 is in the low 90s. An echocardiogram was done which showed his ejection fraction to be 20-25 percent. He then had a cardiac angiogram performed on December 14 which confirmed a global hypokinesis and an ejection fraction of 20 percent. He has continued to take his Xarelto. This morning he noted that the swelling in his leg was increased that over yesterday. The angiogram was done through the right radial artery. Onset: this morning Pain/Injury Location: left leg Allergies and Home Medications Allergies Coded Allergies: No Known Drug Allergies (Unverified , 12/04/18) Home Medications Atorvastatin Calcium 20 Mg Tablet, 20 MG PO DAILY Prescribed by: Nick CASTAÑEDA on 12/14/18 1349 Furosemide 40 Mg Tablet, 40 MG PO DAILY Prescribed by: LORETTA MORRIS on 12/08/18 1154 Glyburide 2.5 Mg Tablet, 2.5 MG PO DAILY Prescribed by: CHET ACEVEDO on 12/08/18 1018 Lisinopril 5 Mg Tablet, 2.5 MG PO DAILY Prescribed by: CHET ACEVEDO on 12/08/18 1018 Metoprolol Tartrate 25 Mg Tablet, 12.5 MG PO BID Prescribed by: CHET ACEVEDO on 12/08/18 1018 Potassium Chloride 10 Meq Capsule.er, 10 MEQ PO BID, (Reported) Rivaroxaban 15 Mg Tablet, 15 MG PO BID@07,17 TAKE BID X 20 DAYS THEN CHANGE TO 20MG PO DAILY Prescribed by: GADIEL GRIJALVA on 12/08/18931 Rivaroxaban 20 Mg Tablet, 20 MG PO DAILY@1700 START AFTER XARELTO 15MG BID IS COMPLETE Prescribed by: GADIEL GRIJALVA on 12/08/18931 Patient Home Medication List Home Medication List Reviewed: Yes Review of Systems Constitutional: see HPI EENTM: no symptoms reported Respiratory: short of breath, other (breathlessness) Cardiovascular: see HPI Gastrointestinal: no symptoms reported Genitourinary: no symptoms reported Musculoskeletal: other (swelling left thigh) Skin: no symptoms reported Past Rqpiytm-[id number]-[id number] Hx Patient Social History Alcohol Use: Occasionally Uses Number of Drinks Today: AA Alcohol Beverage of Choice: Beer Recreational Drug Use: No Smoking Status: Current Everyday Smoker Type Used: Cigarettes Recent Foreign Travel: No Contact w/Someone Who Travel: No Recent Infectious Disease Expo: No Recent Hopitalizations: Yes Immunizations Up To Date Tetanus Booster (TDap): Unknown Past Medical History Surgeries: No Respiratory: Yes Pulmonary Embolism Currently Using CPAP: No Currently Using BIPAP: No Cardiac: Yes (LIFE VEST) Deep Vein Thrombosis, Hypertension Headaches /Migraines Genitourinary: No Gastrointestinal: No Endocrine: Yes Diabetes, Insulin dep Cancer: No Blood Disorders: No Adverse Reaction/Blood Tranf: No Physical Exam Vital Signs Vital Signs - First Documented 12/29/18 15:00 Pulse 110 Resp 20 B/P (MAP) 113/90 (98) Pulse Ox 99 O2 Delivery Room Air Capillary Refill : Less Than 3 Seconds Height, Weight, BMI Height: 6'1.00" Weight: 275lbs. 0.0oz. 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 (12/29/18 16:00) Hydrocodone/Apap 7.5/325 Tab (Lortab 7. (12/29/18 15:51) Medications Given in ED Current Medications Medications Dose Ordered Sig/[place]uyita Route Start Time Stop Time Status Last Admin Dose Admin Acetaminophen/ Hydrocodone Bitart 1 ea ONCE ONCE PO 12/29/18 16:00 12/29/18 16:01 DC 12/29/18 15:58 1 EA Vital Signs/I&O 12/29/18 15:00 Pulse 110 Resp 20 B/P (MAP) 113/90 (98) Pulse Ox 99 O2 Delivery Room Air Blood Pressure Mean: 98 Departure Communication (Admissions) 1810 radiology confirms the administrative services officer's opinion of expanding DVT in the left lower extremity. I had discussed with RAUL Ortiz from our cardiology service prior to that and we concluded that transferred to [facility] in [place] for consideration of venous intervention was in order. I then spoke to Jett Neri of the cardiology service who accepted him in transfer. Impression Primary Impression: extension of DVT of the left lower extremity. Disposition: XF [facility] Condition: Stable/Unchanged Transfer Time Spoke to Accepting Phy: 17:55 Departure-Patient Inst. Referrals: NO,LOCAL PHYSICIAN (PCP/Family) Primary Care Physician LIZET RUST MD Dec 29, 2018 15:36
[2018-12-29] MEDS ORDERED: HYDROcodone/APAP 7.5 MG/325 MG (LORTAB, LORCET PLUS) TABLET PO ONE ×2 (15:51→16:00)
--- NOTE | 2018-12-29 17:27 | Diagnostic Imaging Report ---
PROCEDURE: US left lower extremity venous. TECHNIQUE: Multiple Real-time grayscale images were obtained over the left lower extremity in various projections. Additional duplex Doppler and color Doppler images were also obtained. INDICATION: Left lower extremity swelling and pain. COMPARISON: 12/04/2018. FINDINGS: Left common femoral deep vein thrombosis persists but now has extended into the remainder of the visualized deep system. There is thrombus visualized into the popliteal and deep calf veins. IMPRESSION: Worsening left lower extremity deep vein thrombosis. Report was called to Dr. Alex Morgan, in the [facility] at 5:25 p.m., by mitchell (for VIVEK). Dictated by: Dictated on workstation # [id number]
--- NOTE | 2018-12-29 19:33 | NUR ---
EMS was called at this time and was notified about transfer.
--- NOTE | 2018-12-29 19:35 | NUR ---
[facility] was called about transfer at this time.
[2018-12-29 19:44] VITALS: BP 130/88
[2018-12-29 19:48] VITALS: BP 132/90
[2018-12-29 20:04] VITALS: BP 134/99
--- NOTE | 2018-12-29 20:04 | NUR ---
Report was given to VISHNU Colbert at [facility].
--- NOTE | 2018-12-29 20:25 | NUR ---
Report was given to [facility] at this time. Care was transferred.
--- NOTE | 2018-12-29 20:32 | NUR ---
EMS left at this time.
== END 2018-12-29 20:32 | disposition short-term general hospital (02) ==
LOC: EDUNIT# 14:59 → ER 15:00
DX: I82.402 Acute embolism and thrombosis of unspecified deep veins of left lower extremity (principal); I10 Essential (primary) hypertension; G43.909 Migraine, unspecified, not intractable, without status migrainosus; E11.9 Type 2 diabetes mellitus without complications; F17.210 Nicotine dependence, cigarettes, uncomplicated; Z79.4 Long term (current) use of insulin; Z86.711 Personal history of pulmonary embolism; Z99.81 Dependence on supplemental oxygen; Z79.01 Long term (current) use of anticoagulants

== ENCOUNTER 2019-01-29 19:34 | Outpatient (CLI) | payer SELFPAY | END 2019-01-30 07:15 | disposition home or self-care (01) | LOC: SLEEP 19:34 | PROVIDERS: ATTEND Nurse Practitioner Family | DX: G47.33 Obstructive sleep apnea (adult) (pediatric) (principal); I42.9 Cardiomyopathy, unspecified; G35 Multiple sclerosis; R06.02 Shortness of breath; Z86.711 Personal history of pulmonary embolism; Z86.718 Personal history of other venous thrombosis and embolism | CPT/HCPCS: 95811 ==